=== PATIENT | female | born 1955 | race Caucasian/White ===

== ENCOUNTER 2019-08-10 15:38 | Outpatient (CLI) | payer BC, SELFPAY ==
[2019-08-12 21:58] LABS: NIL 0.45 IU/mL; Quantiferon TB Plus, 1T NEGATIVE (NEGATIVE); TB1-NIL <0.00 IU/mL; TB2-NIL <0.00 IU/mL
== END 2019-08-10 15:39 | disposition home or self-care (01) ==
LOC: ANHLAB 15:42
PROVIDERS: PCP Family Medicine
DX: L40.0 Psoriasis vulgaris (principal)
CPT/HCPCS: 36415; 86480

== ENCOUNTER 2020-07-06 08:56 | Outpatient (CLI) | payer BC, SELFPAY ==
[2020-07-06 09:23] LABS: Hematocrit 41.9 % (37.0-47.0); Hemoglobin 13.8 g/dL (12.0-15.0); Mean Corpuscular HGB Conc 32.9 g/dl (32-36); Mean Corpuscular Hemoglobin 26.1 pg (26-34); Mean Corpuscular Volume 79.2 fl (80-100); Mean Platelet Volume 9.9 fl (7.4-10.4); Platelet Count Result 190 k/mm3 (150-375); Red Blood Count 5.29 M/mm3 (4.2-5.4); Red Cell Distribution Width 15.3 % (11.5-14.5); White Blood Count 5.8 K/mm3 (4.5-10.0)
[2020-07-06 09:33] LABS: Alanine Aminotransferase 97 U/L (4-35); Albumin Level 4.1 g/dL (3.5-5.1); Alkaline Phosphatase 70 U/L (38-126); Anion Gap 6 mmol/L (8-16); Aspartate Amino Transferase 53 U/L (14-36); Bilirubin,Total 0.6 mg/dL (0.2-1.3); Blood Urea Nitrogen 9 mg/dL (7-17); Calcium 9.4 mg/dL (8.4-10.2); Carbon Dioxide 29 mmol/L (22-30); Chloride 101 mmol/L (98-107); Estimated Glomerular Filt Rate > 60; Glucose 228 mg/dL (65-105); Potassium 4.3 mmol/L (3.4-5.0); Sodium 136 mmol/L (137-145)
== END 2020-07-06 08:57 | disposition home or self-care (01) ==
PROVIDERS: PCP Family Medicine; Visit Provider Dermatology
DX: L40.0 Psoriasis vulgaris (principal)
CPT/HCPCS: 36415; 80053; 85027

== ENCOUNTER 2020-08-21 09:55 | Outpatient (CLI) | payer BC, SELFPAY ==
[2020-08-24 01:24] LABS: NIL 0.03 IU/mL; Quantiferon TB Plus, 1T NEGATIVE (NEGATIVE); TB1-NIL <0.00 IU/mL
== END 2020-08-21 09:56 | disposition home or self-care (01) ==
PROVIDERS: PCP Family Medicine; Visit Provider Dermatology
DX: L40.0 Psoriasis vulgaris (principal)
CPT/HCPCS: 36415; 86480

== ENCOUNTER 2021-01-30 09:12 | Outpatient (CLI) | payer BC, SELFPAY ==
[2021-01-30 09:57] LABS: Basophils Absolute Auto 0.1 K/mm3 (0.0-0.1); Basophils Percent Auto 0.8 % (0.2-1.2); Eosinophils Absolute Auto 0.3 K/mm3 (0-0.3); Hematocrit 44.4 % (37.0-47.0); Hemoglobin 14.4 g/dL (12.0-15.0); Immature Granulocyte Absolute 0.02 K/mm3 (0.00-0.031); Immature Granulocyte Percent A 0.3 % (0-0.5); Lymphocytes Absolute Auto 1.12 K/mm3 (0.9-3.2); Lymphocytes Percent Auto 18.1 % (18.3-44.2); Mean Corpuscular HGB Conc 32.4 g/dl (32-36); Mean Corpuscular Hemoglobin 25.6 pg (26-34); Mean Platelet Volume 9.6 fl (7.4-10.4); Monocytes Absolute Auto 0.5 K/mm3 (0.1-0.6); Monocytes Percent Auto 7.4 % (2.6-8.5); Neutrophils Absolute Auto 4.3 K/mm3 (1.3-6.7); Neutrophils Percent Auto 69.4 % (45.5-73.1); Platelet Count Result 240 k/mm3 (150-375); Red Blood Count 5.62 M/mm3 (4.2-5.4); Red Cell Distribution Width 15.2 % (11.5-14.5); White Blood Count 6.2 K/mm3 (4.5-10.0)
[2021-01-30 10:15] LABS: Alanine Aminotransferase 100 U/L (4-35); Albumin Level 4.5 g/dL (3.5-5.1); Alkaline Phosphatase 78 U/L (38-126); Anion Gap 11 mmol/L (8-16); Aspartate Amino Transferase 60 U/L (14-36); Bilirubin,Total 0.7 mg/dL (0.2-1.3); Blood Urea Nitrogen 8 mg/dL (7-17); Calcium 9.9 mg/dL (8.4-10.2); Carbon Dioxide 25 mmol/L (22-30); Chloride 95 mmol/L (98-107); Estimated Glomerular Filt Rate > 60; Glucose 231 mg/dL (65-110); Sodium 131 mmol/L (137-145)
[2021-01-30 10:58] LABS: Creatinine Urine 220.2 mg/dL
[2021-01-30 11:02] LABS: MALB Creatinine Ratio 65.4 mg/g (0-30)
[2021-02-04 13:05] LABS: ANA Cascade Screen Positive (Negative)
[2021-02-04 19:15] LABS: Chromatin (Nucleosomal) Ab >8.0; RNP Antibody 2.8; Sm Antibody >8.0; Sm/RNP Antibody >8.0
== END 2021-01-30 09:13 | disposition home or self-care (01) ==
LOC: ANHLAB 09:16
PROVIDERS: PCP Family Medicine; Visit Provider Physician Assistant Medical
DX: E03.9 Hypothyroidism, unspecified (principal); E78.2 Mixed hyperlipidemia; E11.65 Type 2 diabetes mellitus with hyperglycemia; I77.6 Arteritis, unspecified; Z13.220 Encounter for screening for lipoid disorders; D64.9 Anemia, unspecified
CPT/HCPCS: 36415; 80053; 82043; 84443; 85025; 86038

== ENCOUNTER 2021-02-14 09:00 | Outpatient (CLI) | payer BC, SELFPAY ==
[2021-02-14 10:13] LABS: Anion Gap 8 mmol/L (8-16); Blood Urea Nitrogen 8 mg/dL (7-17); Carbon Dioxide 24 mmol/L (22-30); Chloride 103 mmol/L (98-107); Estimated Glomerular Filt Rate > 60; Glucose 213 mg/dL (65-110); Potassium 4.2 mmol/L (3.4-5.0); Sodium 135 mmol/L (137-145)
== END 2021-02-14 09:01 | disposition home or self-care (01) ==
LOC: ANHLAB 09:02
PROVIDERS: PCP Family Medicine; Visit Provider Physician Assistant Medical
DX: E03.9 Hypothyroidism, unspecified (principal); E87.1 Hypo-osmolality and hyponatremia
CPT/HCPCS: 36415; 80048; 84443

== ENCOUNTER 2021-04-24 13:03 | Inpatient (IN) | payer BC, SELFPAY ==
[2021-04-24] VITALS (19 sets, daily range): BP systolic 121–143; BP diastolic 68–106; PULSE 82–124; RESP 18–36; TEMP 36.7–38; O2SAT 88–99; BMI 35.8
--- NOTE | ~2021-04-24 | XR_ITS ---
EXAMINATION: XR chest 1V portable DATE: 05/02/2021 05:50 INDICATION: COVID-19 pneumonia. TECHNIQUE: A single frontal view of the chest was obtained. COMPARISON: Chest single view 05/01/2021 FINDINGS: There are airspace opacities and interstitial opacities in all lung zones bilaterally with a peripheral predominance, right worse than left. No pleural effusion or pneumothorax. The heart size is normal. A right upper extremity peripherally inserted central venous catheter (PICC) is seen with tip in the proximal right atrium. IMPRESSION: 1. Stable diffuse lung disease, consistent with COVID-19 pneumonia. Reviewed, dictated and finalized at location A. ER CUTTER
--- NOTE | ~2021-04-24 | XR_ITS ---
EXAMINATION: XR chest 1V portable DATE: 05/03/2021 06:00 INDICATION: Diffuse bilateral lung infiltrates. TECHNIQUE: A single frontal view of the chest was obtained. COMPARISON: Chest single view 05/02/2021 FINDINGS: There are airspace and interstitial opacities in all lung zones bilaterally with relative s paring of left lung apex. No pleural effusion or pneumothorax. The heart size is normal. A right uppe r extremity peripherally inserted central venous catheter (PICC) is seen with tip in the proximal rig ht atrium. IMPRESSION: 1. Stable diffuse lung disease considering differences in technique, consistent with COVID-19 pneumon ia. Reviewed, dictated and finalized at location A. T LINE OPERATOR IMPRESSION: 1. Stable diffuse lung disease considering differences in technique, consistent with COVID-19 pneumonia.
--- NOTE | ~2021-04-24 | XR_ITS ---
EXAMINATION: XR chest 1V portable DATE: 04/27/2021 08:41 INDICATION: Pneumonia. Shortness of breath. TECHNIQUE: frontal view of the chest was obtained. COMPARISON: Chest radiograph and CT dated 04/24/2021 FINDINGS: No significant interval change in patchy groundglass and reticular opacities throughout the both lung s relatively sparing the left upper lung zone and right apex. No pleural effusion or pneumothorax. Th e cardiomediastinal silhouette is normal. IMPRESSION: 1. No significant change in diffuse bilateral lung disease consistent with COVID pneumonia. Reviewed, dictated and finalized at location A. IMPRESSION: 1. No significant change in diffuse bilateral lung disease consistent with COVI D pneumonia.
--- NOTE | ~2021-04-24 | XR_ITS ---
EXAMINATION: XR chest 1V portable INDICATION: Hypoxia and shortness of breath TECHNIQUE: Portable AP chest at 1410 hours COMPARISON: 08/11/2010 FINDINGS: There are patchy opacities of the mid and lower lung zones and right upper lung zone. No pl eural effusion or pneumothorax is identified. The cardiomediastinal silhouette is normal. IMPRESSION: 1. Patchy bilateral opacities, likely pneumonia. Reviewed, dictated and finalized at location B.
--- NOTE | ~2021-04-24 | XR_ITS ---
EXAMINATION: XR chest PICC line DATE: 04/28/2021 21:54 INDICATION: PICC line placement TECHNIQUE: frontal view of the chest was obtained. COMPARISON: Chest radiograph dated 04/27/21 FINDINGS: Right upper extremity peripherally inserted central venous catheter (PICC) tip at the mid superior v pedro cava. Persistent interstitial and groundglass opacities in the bilateral mid and lower lung zones . The lung bases and costophrenic angles are excluded from the [id number]. No pneumothorax. Heart size is normal. IMPRESSION: 1. Right PICC line tip in the midsuperior vena cava. 2. No significant change in interstitial and airspace opacities in the mid and lower lung zones consi stent with COVID pneumonia. 3. Limited study with lung bases excluded from the [id number] Reviewed, dictated and finalized at location A. ES 9 12 TUTOR IMPRESSION: 1. Right PICC line tip in the midsuperior vena cava. 2. No significant change in interstitial and airspace opacities in the mid and lower lung zones consistent with COVID pneumonia. 3. Limited study with lung bases excluded from the [id number]
--- NOTE | ~2021-04-24 | CT_ITS ---
EXAMINATION:CT diagnostic chest wo con DATE: 05/02/2021 08:56 INDICATION: Right middle lobe necrotizing pneumonia. COVID-19 pneumonia. TECHNIQUE: Computed tomography (CT) of the chest was performed without intravenous contrast. Automate d exposure control and iterative reconstruction technique were employed. The dose-length product (DLP ) was 256.41 mGy-cm. COMPARISON: Chest CT 04/24/2021, chest radiograph 05/02/2021 FINDINGS: There are widespread groundglass opacities involving all lobes. There are airspace opacitie s and septal thickening involving all lobes with a peripheral predominance with areas of architectura l distortion. There is mild bronchiectasis in the inferior lungs. No pleural effusion. The heart size is normal. There are coronary artery calcifications. A right upper extremity peripherally inserted c entral venous catheter (PICC) is seen with tip in the right atrium. The liver demonstrates hypertroph y of left lateral segment and surface nodularity, consistent with cirrhosis. There is mild thoracic s pondylosis. IMPRESSION: 1. Worsened diffuse lung disease, consistent with COVID-19 pneumonia. 2. Cirrhosis of the liver. Reviewed, dictated and finalized at location A. HER ADULT EDUCATION
--- NOTE | ~2021-04-24 | XR_ITS ---
EXAMINATION: XR chest 1V portable DATE: 05/01/2021 05:44 INDICATION: Pneumonia. TECHNIQUE: A single frontal view of the chest was obtained. COMPARISON: Chest single view 04/28/2021, chest CT 04/24/2021, CT abdomen and pelvis 01/08/2019 FINDINGS: The lung volumes are normal. There are interstitial opacities and heterogeneous hazy airspa ce opacities in all lung zones bilaterally. No pleural effusion or pneumothorax. The heart size is no rmal. A right upper extremity peripherally inserted central venous catheter (PICC) is seen with tip a t the superior cavoatrial junction. IMPRESSION: 1. Diffuse lung disease, mildly worsened on the right from 04/27/2021, consistent with COVID-19 pneumo carla. Reviewed, dictated and finalized at location A. HATCHERY MANAGER IMPRESSION: 1. Diffuse lung disease, mildly worsened on the right from 04/27/2021, consisten t with COVID-19 pneumonia.
--- NOTE | ~2021-04-24 | CT_ITS ---
EXAMINATION: CTA chest PE protocol EXAM DATE: 04/24/2021 15:52 INDICATION: Shortness of breath. TECHNIQUE: Spiral CTA of the chest (pulmonary arteries) was performed with 100 cc Omnipaque 350 intr avenous contrast injection. Images were acquired during the pulmonary arterial phase. Coronal maxi mum intensity projection 3D-reconstructions were created by the technologist on dedicated workstation . Axial, coronal and sagittal reformatted images were reviewed. The dose-length product (DLP) for t his examination was 538.85 mGy-cm. The exposure was tailored according to patient size (auto mA exp osure control), and iterative reconstruction (ASIR) was used as additional dose reduction technique. There is no prior study for comparison. FINDINGS: Pulmonary arteries are well opacified and without intraluminal filling defects. No thora cic aortic dissection. Moderate amount of bilateral patchy peripheral predominant groundglass opacities with some small sydnie ons of confluence. Appearance is typical of acute to subacute COVID 19 pneumonia. Less likely acute possibilities include influenza, pulmonary edema or hemorrhage. Some chronic processes that can have this appearance include cryptogenic organizing pneumonia, desquamative interstitial pneumonia, nonsp ecific interstitial pneumonia, drug toxicity, connective tissue disease. Please clinically correlate and test as appropriate. There are no pleural or pericardial effusions. Tracheobronchial tree is patent. Mild hilar lympha denopathy probably reactive. There is no pneumothorax. Heart normal in size. There is mild coron kianna arterial calcification, arterial sclerosis. Mildly nodular liver contour suspicious for cirrhosi s. Spleen also appears mildly enlarged, incompletely imaged. There is mild thoracic spondylosis with out osteoblastic or osteolytic lesions identified. IMPRESSION: 1. Patchy bilateral groundglass airspace disease could be COVID 19 pneumonia given community prevale nce. Less likely possibilities above. 2. No pulmonary emboli. Reviewed, dictated and finalized at location A. IMPRESSION: 1. Patchy bilateral groundglass airspace disease could be COVID 19 pneumonia g iven community prevalence. Less likely possibilities above. 2. No pulmonary emboli.
--- NOTE | 2021-04-24 13:40 | ECG_ITS ---
Measurements Intervals Boyd Rate: 117 P: 8 GA: 159 QRS: 37 QRSD: 73 T: 17 QT: 340 QTc: 476 Interpretive Statements SINUS TACHYCARDIA BORDERLINE T WAVE ABNORMALITY- INFERIOR LEADS BASELINE ARTIFACT- I, II, III, AVR, AVL, AVF, V1, V3-V6 ABNORMAL ECG Electronically Signed On 04-24-2021 14:23:27 CDT by Andrew Arguelles D.O.
--- NOTE | 2021-04-24 13:42 | ED.URI ---
HPI - URI/Sore Throat General Chief Complaint: Upper Respiratory Infection Stated Complaint: MULTI C/O COUGH/COLD SX Time Seen by Provider: 04/24/21 13:40 Source: patient and family Mode of arrival: ambulatory Limitations: no limitations History of Present Illness HPI Narrative: Patient is a 65-year-old female with a history of type 2 diabetes, psoriasis, hypertension, hypothyroidism, presenting for evaluation of shortness of breath. Patient states she has been unwell over the past 2 weeks. Patient states that she caught a cold while traveling with her in their RV up to [place]. Patient states that due to her immunocompromise state, she typically wears a mask when she is out in the community. She denies recent sick contacts. Patient reports that she began to have low-grade fever, rhinorrhea, congestion, dry cough that is worsened over the past 2 weeks. Patient states that she has had worsening shortness of breath for the past week, and today with increased weakness, lack of appetite, prompting her visit to our department. Patient denies any chest pain. She denies history of asthma or COPD. She is a former smoker with cessation over 30 years ago. She denies any leg swelling or calf pain. No history of blood clot or coagulopathy. She confirms long recent travel to [place]. Patient has received full Covid vaccination series including booster. At the time of triage, patient oxygen saturation 80% on room air, she is tachypneic, tachycardic. Patient is able to speak in full sentences, nonrebreather placed on patient at the time of rooming. Related Data Home Medications Medication Instructions Recorded Confirmed adalimumab 40 mg/0.4 mL See Rx Instructions SUBCUT .COMPLEX 01/30/21 03/20/21 subcutaneous syringe kit Allergies Allergy/AdvReac Type Severity Reaction Status Date / Time adhesive tape Allergy Severe RASH Verified 04/24/21 13:41 latex Allergy Intermediate RASH Verified 04/24/21 13:41 aloe Allergy Unknown Unknown Verified 04/24/21 13:41 morphine AdvReac Severe N/V Verified 04/24/21 13:41 prochlorperazine AdvReac Severe Confusion/J Verified 04/24/21 13:43 ittery empagliflozin AdvReac dizzy and Verified 04/24/21 13:41 [From Jardiance] nausea. Review of Systems Review of Systems: CONSTITUTIONAL: Reports fever and chills EYES: Denies visual changes, redness, or discharge. ENT: Reports rhinorrhea and congestion CARDIOVASCULAR: Denies chest pain, palpitations, or edema. RESPIRATORY: Reports cough and shortness of breath GASTROINTESTINAL: Denies abdominal pain, reports nausea, denies diarrhea GENITOURINARY: Denies dysuria or hematuria. SKIN: Denies rash or itching. MUSCULOSKELETAL: Denies back pain, joint pain, or myalgia. NEUROLOGIC: Denies headache, numbness, reports feeling diffusely weak PMFSH Past Medical History Medical History (Updated 04/24/21 @ 16:26 by Candelaria Penn MD) Anemia BMI 36.0-36.9,adult BMI 37.0-37.9, adult Hepatic cirrhosis Hyponatremia Hypothyroidism Low vitamin D level Lumbar back pain Mixed hyperlipidemia Positive KERI (antinuclear antibody) Psoriasis Type 2 diabetes mellitus without complications Uncontrolled type 2 diabetes mellitus with hyperglycemia Vasculitis Family History Family History Father Hypertension Cerebrovascular accident Mother Hypertension Family history of Alzheimer's disease Grandparent Family history of malignant neoplasm of uterus Diabetes mellitus Social History Social History Smoking status: Never smoker Smoking end date: 06/23/03 Alcohol intake: current Drinks per week: 1 Substance use: never Substance use type: does not use Additional living arrangements comments: roommate Additional occupation/education comments: [employer] Gender identity (if verbalized by the patient): Female Sexual Orientat
[2021-04-24] MEDS: SODIUM CHLORIDE 0.9% IV 1,000 ML 999 ML IV CONT (13:52)
[2021-04-24 14:03] LABS: Alveolar/Arterial O2 Gradient 613.2 mmHg; Carboxyhemoglobin 0.6 % THb (0-2.0); Fractional Inspired Oxygen 100 %; HCO3 ABG 18.9 mEq/l (22.0-26.0); Methemoglobin ABG 0.3 %THb (0-1.5); Oxygen Content ABG 18.1 %vol (16.0-22.0); Oxyhemoglobin 93.6 % THb (90.0-100.0); PCO2 ABG 25.9 mmHg (35.0-45.0); PO2 ABG 73.9 mmHg (80.0-100.0); PO2 FiO2 Ratio Arterial Blood 0.74 %; Reduced Hemoglobin 5.5 %THb (0-5.0); Total Hemoglobin 13.7 g/dL (12.0-18.0)
[2021-04-24 14:04] LABS: Device NON-REBREATHER MASK; Modified Allen's Test Pass; Site Drawn RIGHT RADIAL
[2021-04-24 14:51] LABS: INR 1.1; Prothrombin Time 13.9 Seconds (11.1-14.7)
[2021-04-24 14:52] LABS: Partial Thromboplastin Time 28.6 SECONDS (22.3-36.8)
[2021-04-24 15:06] LABS: Lactic Acid Reflex 1.6 mmol/L (0.7-2.1)
[2021-04-24 15:16] LABS: Alanine Aminotransferase 43 U/L (4-35); Albumin Level 3.3 g/dL (3.5-5.1); Alkaline Phosphatase 90 U/L (38-126); Anion Gap 11 mmol/L (8-16); Aspartate Amino Transferase 87 U/L (14-36); Bilirubin,Total 0.9 mg/dL (0.2-1.3); Blood Urea Nitrogen 5 mg/dL (7-17); Calcium 8.3 mg/dL (8.4-10.2); Carbon Dioxide 22 mmol/L (22-30); Chloride 94 mmol/L (98-107); Estimated CRCL calculation 139 ml/min; Estimated Glomerular Filt Rate > 60; Glucose 230 mg/dL (65-110); Sodium 127 mmol/L (137-145)
[2021-04-24 15:22] LABS: Basophils Percent Auto 0.3 % (0.2-1.2); Hematocrit 38.9 % (37.0-47.0); Hemoglobin 13.1 g/dL (12.0-15.0); Immature Granulocyte Absolute 0.02 K/mm3 (0.00-0.031); Immature Granulocyte Percent A 0.5 % (0-0.5); Lymphocytes Absolute Auto 0.38 K/mm3 (0.9-3.2); Lymphocytes Percent Auto 9.7 % (18.3-44.2); Mean Corpuscular HGB Conc 33.7 g/dl (32-36); Mean Corpuscular Hemoglobin 26.5 pg (26-34); Mean Corpuscular Volume 78.7 fl (80-100); Mean Platelet Volume 9.5 fl (7.4-10.4); Monocytes Absolute Auto 0.2 K/mm3 (0.1-0.6); Monocytes Percent Auto 5.9 % (2.6-8.5); Neutrophils Absolute Auto 3.3 K/mm3 (1.3-6.7); Neutrophils Percent Auto 83.6 % (45.5-73.1); Platelet Count Result 221 k/mm3 (150-375); Red Blood Count 4.94 M/mm3 (4.2-5.4); Red Cell Distribution Width 16.2 % (11.5-14.5); White Blood Count 3.9 K/mm3 (4.5-10.0)
[2021-04-24 15:28] LABS: NT Pro B Type Natriuretic Pept 69 pg/mL (5-100); Troponin I < 0.012 ng/mL (0.000-0.034)
[2021-04-24 17:58] LABS: Add Urine Microscopic? YES; Appearance Urine Clear (Clear); Bacteria Urine Trace /hpf; Bilirubin Urine Negative (Negative); Blood Urine 1+ (Negative); Color Urine Yellow (Yellow); Glucose Urine UA 2+ mg/dL (Negative); Ketones Urine Trace mg/dL (Negative); Leukocyte Esterase Ur 3+ LEU/UL (Negative); Mucus Urine Rare /lpf; Nitrate Urine Negative (Negative); Protein Urine Negative (Negative); Squamous Epithelial Cell Urine Moderate /hpf (Few); Urobilinogen Urine Negative mg/dL (<2.0); WBC Urine 16-20 /hpf
[2021-04-24 18:00] LABS: Specific Grav Ur 1.033 (1.001-1.035)
--- NOTE | 2021-04-24 20:13 | PM.IMHP ---
H&P: HPI History of Present Illness Date/Time: 04/24/21 20:13 Chief Complaint: Shortness of breath. Narrative: This is a 65-year-old female with past medical history significant for psoriasis, type 2 diabetes mellitus controlled with diet and ora agents, hypertension, hypothyroidism, dyslipidemia. Patient presented to the emergency room due to generalized malaise, body aches and pains, uncontrollable shivering, chills, subjective fevers, nausea, vomiting, poor appetite, has not been able to eating in today and has been eating very little in the last 2 weeks or so, has had diarrhea as well, patient has been vaccinated for COVID, she lives with a roommate he has a cold. Patient had tested positive for COVID. Patient had worsening shortness of breath with minimal exertion and a dry cough at times productive of clear phlegm, had not been able to get up from bed in several days. Preliminary workup has been significant for chest x-ray with patchy bilateral opacities, a CT angio of the chest was significant for patchy bilateral groundglass airspace disease could be COVID 19 pneumonia given community prevalence. In emergency room patient had a temp of 100.4 respiratory rate in the 30s pulse ox in the mid 90s at the time of my visit patient was on supplemental oxygen by nasal cannula and stated that was he was feeling better. Review of Systems Review of Systems: Dry cough, shortness of breath ,generalized malaise, nausea ,,vomiting diarrhea ,poor appetite, chills. Constitutional: Constitutional: Reports body ache(s), Reports chills, Reports fatigue, Reports fever(s), Reports lethargy, Reports malaise, Reports poor appetite and Reports weakness Eyes: Eyes: Denies change in vision ENT: Denies dysphagia, Denies vertigo, Denies dizziness, Reports nasal congestion, Denies nasal discharge, Denies nasal obstruction, Denies odynophagia, Denies sinus pressure and Denies sore throat Cardiovascular: Cardiovascular: Denies irregular heart rhythm, Denies claudication, Denies lightheadedness, Denies radiating jaw, neck or arm pain, Denies palpitations, Denies dyspnea, Denies dyspnea on exertion, Denies orthopnea and Denies paroxysmal nocturnal dyspnea Respiratory: Respiratory: Reports cough, Denies excessive phlegm production, Reports dyspnea, Reports dyspnea on exertion and Denies wheezing Comments: Scanty sputum production of clear phlegm Gastrointestinal: Gastrointestinal: Denies abdominal pain, Reports diarrhea, Reports nausea and Reports vomiting Genitourinary: Genitourinary: Reports no additional female genitourinary complaints and Reports as per HPI Musculoskeletal: Musculoskeletal: Reports myalgias, Denies arthralgias and Denies joint swelling Integumentary/Breasts: Skin/Breast: Reports rash (Psoriatic rash) Neurologic: Denies focal weakness and Denies Sensory deficit (Neuro) Psychiatric: Psychiatric: Reports no additional psychiatric complaints and Reports as per HPI Endocrine: Endocrine: Reports no additional endocrine complaints and Reports as per HPI Hematologic/Lymphatic: Hematologic/Lymphatic: Reports no additional hematologic/lymphatic complaints and Reports as per HPI Allergic/Immunologic: Allergic/Immunologic: Reports no additional allergic/immunologic complaints and Reports as per HPI PMFSH Past Medical History Medical History (Updated 04/25/21 @ 00:17 by Laura Morillo MD) Anemia BMI 36.0-36.9,adult BMI 37.0-37.9, adult Hepatic cirrhosis Hyponatremia Hypothyroidism Low vitamin D level Lumbar back pain Mixed hyperlipidemia Positive KERI (antinuclear antibody) Psoriasis Type 2 diabetes mellitus without complications Uncontrolled type 2 diabetes mellitus with hyperglycemia Vasculitis Family History Family History Father Hypertension Cerebrovascular accident Mother Hypertension Family history of Alzheimer's disease Grandparent Family history of malignant neoplasm of
[2021-04-24 20:58] LABS: Glucose Point of Care 360 mg/dl (65-105)
[2021-04-24] MEDS: ALBUTEROL SULFATE (*SP) INHALER 2 PUFF INHALATION (21:11)
[2021-04-24 22:00] LABS: INR 1.1; Prothrombin Time 13.9 Seconds (11.1-14.7)
[2021-04-24 22:01] LABS: Alanine Aminotransferase 42 U/L (4-35); Estimated CRCL calculation 135 ml/min; Estimated Glomerular Filt Rate > 60
[2021-04-24] MEDS: REMDESIVIR 200 MG/NS 250 ML 200 MG/250 ML BAG 250 MG IVPB (22:01)
--- NOTE | 2021-04-24 22:19 | ADMGEN ---
This patient, Albina Crockett, was admitted to IMU Room 211-01. Patient/family oriented to hospital policies and general routines including ID bracelet, bed and alarms, visiting hours, pain management, procedures, bathroom and other care routines, personal items, smoking policy, room service/diet, and visiting hours. Information on how to activate the Rapid Response Team has been discussed. Patient/Family are encouraged to report perceived risks to care and to ask questions if they do not understand what they are told or what they should do.
[2021-04-25] VITALS (22 sets, daily range): BP systolic 104–120; BP diastolic 52–62; PULSE 74–97; RESP 20–24; TEMP 35.8–36.8; O2SAT 92–100
[2021-04-25] MEDS: ALBUTEROL SULFATE (*SP) INHALER 2 PUFF INHALATION ×6 (01:20→20:47)
[2021-04-25 04:46] LABS: Alanine Aminotransferase 39 U/L (4-35); Estimated CRCL calculation 135 ml/min; Estimated Glomerular Filt Rate > 60
[2021-04-25 04:52] LABS: INR 1.1; Prothrombin Time 13.8 Seconds (11.1-14.7)
[2021-04-25] MEDS: LEVOTHYROXINE SODIUM 75 MCG TABLET PO (05:10)
[2021-04-25] MEDS: ROSUVASTATIN 10 MG TABLET 20 MG PO (08:19)
[2021-04-25] MEDS: lisinopriL 5 MG TABLET PO (08:20)
[2021-04-25] MEDS: ENOXAPARIN 40 MG/0.4 ML SYRINGE SUB-Q ×2 (08:20→20:19)
[2021-04-25] MEDS: INSULIN ASPART (*BKC) 100 UNITS/ML SUB-Q ×3 (08:21→17:48)
[2021-04-25 08:29] LABS: Glucose Point of Care 228 mg/dl (65-105)
--- NOTE | 2021-04-25 08:53 | PM.IMPN ---
Progress Note: A&P Assessment and Plan (1) Acute respiratory failure with hypoxia: Code(s): J96.01 - Acute respiratory failure with hypoxia Status: Acute Assessment and Plan: Patient is on 15 L of oxygen by nasal cannula (2) Pseudohyponatremia: Code(s): R79.89 - Other specified abnormal findings of blood chemistry Status: Acute Assessment and Plan: Likely a combination of poor oral intake and some hyperglycemia Continue to monitor Will try for p.o. intake due to her tenuous respiratory status (3) Type 2 diabetes mellitus without complications: Qualifiers: Diabetes mellitus [facility] insulin use: without [facility] use Qualified Code(s): E11.9 - Type 2 diabetes mellitus without complications Code(s): E11.9 - Type 2 diabetes mellitus without complications Status: Acute Assessment and Plan: Holding metformin Holding glimepiride Insulin sliding scale as needed Accu-Cheks AC and HS (4) Psoriasis: Code(s): L40.9 - Psoriasis, unspecified Status: Acute (5) Lumbar back pain: Code(s): M54.5 - Low back pain Status: Acute Assessment and Plan: Tylenol p.r.n. (6) Hypothyroidism: Qualifiers: Hypothyroidism type: unspecified Qualified Code(s): E03.9 - Hypothyroidism, unspecified Code(s): E03.9 - Hypothyroidism, unspecified Status: Acute Assessment and Plan: Continue Synthroid Follow-up in the outpatient setting (7) Pneumonia: Code(s): J18.9 - Pneumonia, unspecified organism Status: Acute Assessment and Plan: 04/25/21 Acute hypoxemic respiratory failure on 15 L Workup started for atypical pneumonia Repeat COVID PCR Consult pulmonology Patient on Humira unclear if she has pneumonia associated with immunocompromise state Continue current care A.m. labs Subjective Date/time seen: 04/25/21 08:53 pt reports that she has received the vaccine for COVID-19 and are ready has had a negative test the outpatient setting in that she strongly believes she does not have COVID-19 at this time. She is advised the risk still pending the results of the PCR test done here in house. Call from our inpatient PCR is negative will order atypical workup and consult Pulmonary patient is immunocompromised taking Humira Exam Narrative: GEN: NAD, AAOx3, cooperative HEENT: NCAT, MMM, EOMI Neck: no JVD Heart: S1S2 RRR Lungs: Crackle no use of accessory muscles on 15 L nasal cannula with non-rebreather mask saturating 97% Abd: soft, NT, ND, bowel sounds normoactive Ext: moves all, no cyanosis, no clubbing, no edema Neuro: Cranial nerves intact no focal neurological deficits appreciated Psych: Mood and affect congruent Objective Data Vital Signs Vital Signs: Vital Signs - 24 hr 04/24/21 13:30 04/24/21 13:34 04/24/21 13:35 Temperature 100.4 F H Pulse Rate 124 H 121 H Respiratory Rate 28 H 26 H Blood Pressure 141/106 H 141/106 H Pulse Oximetry 93 94 96 04/24/21 13:38 04/24/21 13:45 04/24/21 14:00 Temperature Pulse Rate 120 H 118 H 120 H Respiratory Rate 30 H 30 H 29 H Blood Pressure 143/75 H 126/96 H 131/89 Pulse Oximetry 99 97 99 04/24/21 14:34 04/24/21 14:45 04/24/21 15:15 Temperature Pulse Rate 89 107 H 106 H Respiratory Rate 18 20 20 Blood Pressure 132/78 130/82 Pulse Oximetry 98 97 97 04/24/21 16:45 04/24/21 17:30 04/24/21 18:30 Temperature Pulse Rate 95 107 H 95 Respiratory Rate 28 H 27 H 28 H Blood Pressure 121/78 136/82 132/70 Pulse Oximetry 94 97 97 04/24/21 19:00 04/24/21 20:00 04/24/21 20:30 Temperature Pulse Rate 93 93 82 Respiratory Rate 36 H 31 H 30 H Blood Pressure 136/75 132/76 136/72 Pulse Oximetry 97 94 94 04/24/21 21:00 04/24/21 21:14 04/24/21 22:00 Temperature Pulse Rate 96 88 96 Respiratory Rate 22 H 18 Blood Pressure Pulse Oximetry 92 95 04/24/21 23:57 04/25/21 00:00 04/25/21 01:49 Temp
[2021-04-25 09:12] LABS: D Dimer 3.78 ug/mL (<0.48)
[2021-04-25] MEDS: PANTOPRAZOLE SODIUM IV 40 MG VIAL IV PUSH ×2 (11:08→20:19)
[2021-04-25] MEDS: DEXAMETHASONE 2 MG TABLET 6 MG PO ×2 (11:08→17:48)
[2021-04-25 11:22] LABS: CRP 4.7 mg/dL (<1.0); Lactate Dehydrogenase 1487 U/L (313-618)
[2021-04-25 12:01] LABS: Glucose Point of Care 263 mg/dl (65-105)
[2021-04-25 17:30] LABS: SARS-CoV-2 RNA PCR Negative
[2021-04-25 17:35] LABS: Glucose Point of Care 290 mg/dl (65-105)
--- NOTE | 2021-04-25 17:40 | PHAR ---
Humira Pen 40mg/0.4ml home medication seen and kept in IMU nursing unit. Every 2 weeks, dose due 04/25/21
--- NOTE | 2021-04-25 17:41 | PHAR ---
Humira Pen 40mg/0.4ml Pen home medication kept on IMU nursing unit. Dose [id number] is due 04/25/21
[2021-04-25 20:09] LABS: Glucose Point of Care 346 mg/dl (65-105)
[2021-04-25] MEDS: ACETAMINOPHEN 325 MG TABLET 650 MG PO (23:15)
[2021-04-26] VITALS (16 sets, daily range): BP systolic 100–137; BP diastolic 55–78; PULSE 65–108; RESP 18–24; TEMP 35.8–36.8; O2SAT 90–100
[2021-04-26] MEDS: ALBUTEROL SULFATE (*SP) INHALER 2 PUFF INHALATION ×6 (00:10→20:07)
[2021-04-26 04:55] LABS: Hematocrit 37.9 % (37.0-47.0); Hemoglobin 12.4 g/dL (12.0-15.0); Immature Granulocyte Absolute 0.02 K/mm3 (0.00-0.031); Immature Granulocyte Percent A 0.4 % (0-0.5); Lymphocytes Absolute Auto 0.56 K/mm3 (0.9-3.2); Lymphocytes Percent Auto 10.9 % (18.3-44.2); Mean Corpuscular HGB Conc 32.7 g/dl (32-36); Mean Corpuscular Hemoglobin 26.2 pg (26-34); Mean Corpuscular Volume 80.1 fl (80-100); Mean Platelet Volume 9.1 fl (7.4-10.4); Monocytes Absolute Auto 0.3 K/mm3 (0.1-0.6); Monocytes Percent Auto 5.4 % (2.6-8.5); Neutrophils Absolute Auto 4.3 K/mm3 (1.3-6.7); Neutrophils Percent Auto 83.3 % (45.5-73.1); Platelet Count Result 201 k/mm3 (150-375); Red Blood Count 4.73 M/mm3 (4.2-5.4); Red Cell Distribution Width 16.5 % (11.5-14.5); White Blood Count 5.1 K/mm3 (4.5-10.0)
[2021-04-26 05:12] LABS: INR 1.2; Prothrombin Time 14.9 Seconds (11.1-14.7)
[2021-04-26 05:24] LABS: Alanine Aminotransferase 36 U/L (4-35); Albumin Level 3.3 g/dL (3.5-5.1); Alkaline Phosphatase 87 U/L (38-126); Anion Gap 9 mmol/L (8-16); Aspartate Amino Transferase 69 U/L (14-36); Bilirubin,Total 0.6 mg/dL (0.2-1.3); Blood Urea Nitrogen 10 mg/dL (7-17); Calcium 8.6 mg/dL (8.4-10.2); Carbon Dioxide 24 mmol/L (22-30); Chloride 100 mmol/L (98-107); Estimated CRCL calculation 111 ml/min; Estimated Glomerular Filt Rate > 60; Glucose 300 mg/dL (65-110); Magnesium 2.1 mg/dL (1.6-2.3); Potassium 3.8 mmol/L (3.4-5.0); Sodium 133 mmol/L (137-145)
[2021-04-26] MEDS: LEVOTHYROXINE SODIUM 75 MCG TABLET PO (05:41)
[2021-04-26 08:08] LABS: Glucose Point of Care 279 mg/dl (65-105)
[2021-04-26] MEDS: INSULIN ASPART (*BKC) 100 UNITS/ML SUB-Q ×3 (08:09→17:26)
[2021-04-26] MEDS: PANTOPRAZOLE SODIUM IV 40 MG VIAL IV PUSH ×2 (08:09→20:30)
[2021-04-26] MEDS: ROSUVASTATIN 10 MG TABLET 20 MG PO (08:10)
[2021-04-26] MEDS: lisinopriL 5 MG TABLET PO (08:10)
[2021-04-26] MEDS: ENOXAPARIN 40 MG/0.4 ML SYRINGE SUB-Q ×2 (08:10→20:30)
--- NOTE | 2021-04-26 11:12 | PM.IMPN ---
Progress Note: A&P Assessment and Plan (1) Acute respiratory failure with hypoxia: Code(s): J96.01 - Acute respiratory failure with hypoxia Status: Acute Assessment and Plan: Patient is on 15 L of oxygen by nasal cannula (2) Pseudohyponatremia: Code(s): R79.89 - Other specified abnormal findings of blood chemistry Status: Acute Assessment and Plan: Likely a combination of poor oral intake and some hyperglycemia Continue to monitor Will try for p.o. intake due to her tenuous respiratory status (3) Type 2 diabetes mellitus without complications: Qualifiers: Diabetes mellitus senior living insulin use: without senior living use Qualified Code(s): E11.9 - Type 2 diabetes mellitus without complications Code(s): E11.9 - Type 2 diabetes mellitus without complications Status: Acute Assessment and Plan: Holding metformin Holding glimepiride Insulin sliding scale as needed Accu-Cheks AC and HS (4) Psoriasis: Code(s): L40.9 - Psoriasis, unspecified Status: Acute (5) Lumbar back pain: Code(s): M54.5 - Low back pain Status: Acute Assessment and Plan: Tylenol p.r.n. (6) Hypothyroidism: Qualifiers: Hypothyroidism type: unspecified Qualified Code(s): E03.9 - Hypothyroidism, unspecified Code(s): E03.9 - Hypothyroidism, unspecified Status: Acute Assessment and Plan: Continue Synthroid Follow-up in the outpatient setting (7) Pneumonia: Code(s): J18.9 - Pneumonia, unspecified organism Status: Acute Assessment and Plan: 04/25/21 Acute hypoxemic respiratory failure on 15 L Workup started for atypical pneumonia Repeat COVID PCR Consult pulmonology Patient on Humira unclear if she has pneumonia associated with immunocompromise state Continue current care A.m. labs 04/26/21 seen by pulm atypical PNA workup pending including repeat COVID testing pulm recs appreciated no overnight events cont current care O2 on high flow but stable BG elevated (received steroids) start Lantus 10U in addition to ISS med dose Subjective Date/time seen: 04/26/21 11:12 Pt states that she feels better just waiting for pulm consult. no overnight events , O2 stable for last 24 hours Exam Narrative: GEN: NAD, AAOx3, cooperative HEENT: NCAT, MMM, EOMI Neck: no JVD Heart: S1S2 RRR Ext: moves all, no cyanosis, no clubbing, no edema, wide spead psoriatic rash Neuro: Cranial nerves intact no focal neurological deficits appreciated Psych: Mood and affect congruent Objective Data Vital Signs Vital Signs: Vital Signs - 24 hr 04/25/21 12:00 04/25/21 12:22 04/25/21 14:00 Temperature 98.3 F Pulse Rate 88 90 97 Respiratory Rate 20 Blood Pressure 104/52 L Pulse Oximetry 95 95 04/25/21 16:00 04/25/21 17:44 04/25/21 18:00 Temperature 97.8 F Pulse Rate 88 96 92 Respiratory Rate 24 H Blood Pressure 120/62 Pulse Oximetry 92 96 04/25/21 19:32 04/25/21 20:00 04/25/21 20:47 Temperature 98.1 F Pulse Rate 91 89 84 Respiratory Rate 24 H 20 20 Blood Pressure 109/55 L Pulse Oximetry 96 97 97 04/25/21 21:55 04/25/21 23:26 04/26/21 00:00 Temperature 98 F Pulse Rate 88 86 96 Respiratory Rate 20 20 Blood Pressure 106/56 L Pulse Oximetry 100 100 04/26/21 02:00 04/26/21 03:43 04/26/21 04:00 Temperature 97.9 F Pulse Rate 68 65 75 Respiratory Rate 24 H 24 H Blood Pressure 100/55 L Pulse Oximetry 96 96 04/26/21 06:00 04/26/21 08:00 04/26/21 09:24 Temperature 96.5 F L Pulse Rate 78 91 Respiratory Rate 18 Blood Pressure 137/78 Pulse Oximetry 98 97 Intake/Output Intake/Output: Intake & Output 04/23/21 04/24/21 04/25/21 04/26/21 23:59 23:59 23:59 23:59 Intake Total 1650 1640 350 Output Total 3000 1800 Balance [id number] -[id number] -[id number] Meds/Results Medications: Active Medications Generic Name Dose Route Start Last Admin
[2021-04-26 11:44] LABS: Glucose Point of Care 317 mg/dl (65-105)
--- NOTE | 2021-04-26 16:42 | PM.CNPUL ---
Assessment and Plan Assessment and plan (1) Pneumonia: Code(s): J18.9 - Pneumonia, unspecified organism Status: Acute Assessment and Plan: 65-year-old female with 1 month history of progressively increasing shortness of breath, low-grade temperature, hypoxemic respiratory failure related to extensive bilateral ground-glass opacities with subpleural and basilar distribution, chronically immunocompromised on adalimumab for psoriatic arthritis, with positive KERI and other antibodies tested 3 months ago, with negative COVID PCR testing is currently on high-flow nasal cannula with oxygen saturation in the high 90s and on antibiotics for possible community-acquired pneumonia. Influenza swab testing reportedly negative. Repeat testing for COVID pending. Etiology of the patient's illness is not quite clear. The pulmonary infiltrates are compatible with possible COVID pneumonia especially with the history of chronic immunosuppression although she has been vaccinated and also received booster shot in 02/10. What is not typical for Covid pneumonia is that the illness is rather subacute it started one month ago and respiratory failure occurred late from onset of symptoms. Differential diagnosis includes other infectious diseases causing atypical pneumonia. Also the patient has significant auto immune disease background and there is a possibility that the bilateral infiltrates are due to interstitial lung disease such as NSIP. Interstitial lung disease is quite rare in patients with psoriatic arthritis but may occur in patients on anti TNF alpha therapy. plan: await repeat CoVID PCR testing. If negative, we will consider bronchoscopy with BAL to exclude other infections. Continue with current antibiotics for now, HF nasal canula, DVT prophylaxis. Keep patient NPO. (2) Acute respiratory failure with hypoxia: Code(s): J96.01 - Acute respiratory failure with hypoxia Status: Acute (3) Psoriasis: Code(s): L40.9 - Psoriasis, unspecified Status: Acute (4) Positive KERI (antinuclear antibody): Code(s): R76.8 - Other specified abnormal immunological findings in serum Status: Acute History of Present Illness History of Present Illness Consult date: 04/26/21 Chief complaint: Pneumonia, Hypoxic Respiratory Failure Narrative: this 65-year-old female was admitted 2 days ago with a month history of febrile illness, dyspnea and fatigue. The patient has multiple medical problems including psoriatic arthritis chronically on anti TNF alpha agents, history of diabetes mellitus, hidradenitis supurativa, hypothyroidism. She was in her usual state of health until approximately one month ago when while on a trip in [place] she started having a low-grade temperature muscle aches occasional chills shortness of breath. when she returned from the trip she had a temperature 100.7?. For approximately 1 months, and while working from home she continued to have fatigue shortness of breath mild cough occasional night sweats muscle aches and fatigue. Four days prior to coming to the hospital she had a COVID test at [facility] which was reportedly negative. Over the ensuing days, the shortness of breath worsened and patient presented to the emergency room. In the emergency room she was found to have respiratory distress with hypoxemia and temperature 38? C. she was placed on non-rebreather mask with improvement of Oxyhemoglobin saturation. Workup with chest imaging studies showed bilateral patchy infiltrates primarily subpleurally and also at bases similar to those seen in patients with COVID-19 pneumonia. Of note the patient was vaccinated with 2 doses of Covid vaccine and received a booster dose in January. COVID-19 PCR testing was negative. Currently she is on high-flow nasal cannula, receiving antibiotics for possible community-acquired pneumonia. The patient is a poor historian she initially stated that she has been sick for 2 week
[2021-04-26 17:02] LABS: Glucose Point of Care 275 mg/dl (65-105)
[2021-04-26 20:28] LABS: D Dimer 0.27 ug/mL (<0.48)
[2021-04-26 20:31] LABS: Glucose Point of Care 334 mg/dl (65-105)
[2021-04-26 20:33] LABS: Erythrocyte Sedimentation Rate 25 mm/hr (0-20)
[2021-04-26] MEDS: INSULIN GLARGINE (*BKC) 100 UNITS/ML 10 UNITS SUB-Q (21:08)
[2021-04-26 22:24] LABS: SARS-CoV-2 RNA PCR Negative
[2021-04-26 22:32] LABS: Influenza Control Positive
[2021-04-27] VITALS (20 sets, daily range): BP systolic 109–139; BP diastolic 64–88; PULSE 90–114; RESP 20–24; TEMP 36.1–36.5; O2SAT 89–100
[2021-04-27] MEDS: ALBUTEROL SULFATE (*SP) INHALER 2 PUFF INHALATION ×3 (04:45→20:36)
[2021-04-27 07:40] LABS: INR 1.1; Prothrombin Time 13.6 Seconds (11.1-14.7)
[2021-04-27 07:41] LABS: Alanine Aminotransferase 35 U/L (4-35); Albumin Level 3.5 g/dL (3.5-5.1); Alkaline Phosphatase 94 U/L (38-126); Anion Gap 10 mmol/L (8-16); Aspartate Amino Transferase 52 U/L (14-36); Bilirubin,Total 0.8 mg/dL (0.2-1.3); Blood Urea Nitrogen 14 mg/dL (7-17); Carbon Dioxide 23 mmol/L (22-30); Chloride 100 mmol/L (98-107); Estimated CRCL calculation 135 ml/min; Estimated Glomerular Filt Rate > 60; Glucose 292 mg/dL (65-110); Potassium 3.9 mmol/L (3.4-5.0); Sodium 133 mmol/L (137-145)
[2021-04-27] MEDS: INSULIN ASPART (*BKC) 100 UNITS/ML SUB-Q ×3 (08:20→17:59)
[2021-04-27] MEDS: PANTOPRAZOLE SODIUM IV 40 MG VIAL IV PUSH ×2 (08:20→22:13)
--- NOTE | 2021-04-27 11:24 | PM.PNPUL ---
Progress Note: A&P Assessment and Plan (1) Pneumonia: Qualifiers: Pneumonia type: due to unspecified organism Laterality: bilateral Lung location: lower lobe of lung Qualified Code(s): J18.9 - Pneumonia, unspecified organism Code(s): J18.9 - Pneumonia, unspecified organism Status: Acute Assessment and Plan: 65-year-old immunocompromised female chronically on alpha anti TNF agent for psoriasis, vaccinated with 2 doses and additional booster for COVID, presented with febrile illness and shortness of breath that started approximately 1 month ago. The disease tempo has been fully clarified with the patient who stated that she became sick about 1 month prior to this admission. 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 On admission, she was found to have bilateral pulmonary infiltrates hypoxemia, low-grade temperature, mildly elevated D-dimers and CRP, and a borderline WBC with lymphopenia. Patient had 1- COVID test negative prior to coming to the hospital, 2nd negative COVID test on the day of admission and a 3rd COVID negative test yesterday. Other tests for infectious agents are pending as of now. The clinical condition has been stable over the last 24 hours, with the patient having O2 saturation of 97-98% on non-rebreather mask. Her shortness of breath has not worsened since admission. The chest CT showed ground-glass opacities primarily subpleurally and at bases bilaterally, which to a great extent resemble those of COVID pneumonia. on CT scan there is no evidence of consolidation, pleural effusion, or nodular densities that would suggest alternative diagnoses. The differential diagnosis, in addition to COVID pneumonia, includes other atypical pneumonia related to viruses, or to other organisms and also NSIP given the patient's autoimmune disease background and treatment with anti-TNF agents. Given the characteristic CT findings resembling COVID 19 pneumonia and despite recent booster vaccine at about 6 months after the two-dose vaccination and the negative PCR testing this may still be COVID pneumonia as the patient is severely immunocompromised, and the infection started about 1 month ago, which is enough time for the PCR testing to become negative. On today's chest x-ray, there was no significant worsening of bilateral pulmonary infiltrates. Since admission the CRP is now in the normal range as are the D-dimers. Plan is as follows: Will continue with the current treatment which includes antibiotics for community-acquired pneumonia, continue with DVT prophylaxis and current supplemental oxygen. Repeat chest x-ray in a.m. to monitor for possible infiltrate worsening. If there is evidence of clinical deterioration or worsening of infiltrates will proceed with bronchoscopy with BAL. Bronchoscopy was not done today as the patient has been stable over the last 24 hours, adequately oxygenated on high-flow nasal cannula or on non-rebreather mask, and also to avoid possible worsening respiratory status necessitating intubation related to the procedure. (2) Acute respiratory failure with hypoxia: Code(s): J96.01 - Acute respiratory failure with hypoxia Status: Acute (3) Psoriasis: Code(s): L40.9 - Psoriasis, unspecified Status: Acute (4) Hypothyroidism: Qualifiers: Hypothyroidism type: unspecified Qualified Code(s): E03.9 - Hypothyroidism, unspecified Code(s): E03.9 - Hypothyroidism, unspecified Status: Acute (5) Positive KERI (antinuclear antibody): Code(s): R76.8 - Other specified abnormal immunological findings in serum Status: Acute Subjective Date/time seen: 04/27/21 11:24 This is been no significant change in clinical condition over last 24 hours. Patient has been afebrile, with mild shortness of breath while receiving supplemental oxygen at 15 L per minute via high-flow nasal cannula. She has a very
[2021-04-27 12:29] LABS: Glucose Point of Care 256 mg/dl (65-105)
[2021-04-27 13:17] LABS: Alveolar/Arterial O2 Gradient 455.9 mmHg; Base Excess ABG -0.6 mEq/l (+/-2.0); Fractional Inspired Oxygen 80 %; HCO3 ABG 22.2 mEq/l (22.0-26.0); Oxygen Content ABG 18.6 %vol (16.0-22.0); Oxygen Saturation ABG 96.7 % (95.0-100.0); Oxyhemoglobin 94.9 % THb (90.0-100.0); PCO2 ABG 31.4 mmHg (35.0-45.0); PO2 ABG 81.5 mmHg (80.0-100.0); PO2 FiO2 Ratio Arterial Blood 1.02 %; Total Hemoglobin 13.9 g/dL (12.0-18.0); pH ABG 7.468 (7.350-7.450)
[2021-04-27 13:18] LABS: Device HIGH FLOW THERAPY; Modified Allen's Test Pass; Site Drawn RIGHT RADIAL
--- NOTE | 2021-04-27 13:26 | PC.NURSE ---
On 04/27/21, the student, [Jordy Monique], provided care and [facility] this patient. I have reviewed the student's documentation and agree with the findings.
--- NOTE | 2021-04-27 14:51 | PM.IMPN ---
Progress Note: A&P Assessment and Plan (1) Acute respiratory failure with hypoxia: Code(s): J96.01 - Acute respiratory failure with hypoxia Status: Acute Assessment and Plan: Patient is on 15 L of oxygen by nasal cannula (2) Pseudohyponatremia: Code(s): R79.89 - Other specified abnormal findings of blood chemistry Status: Acute Assessment and Plan: Likely a combination of poor oral intake and some hyperglycemia Continue to monitor Will try for p.o. intake due to her tenuous respiratory status (3) Type 2 diabetes mellitus without complications: Qualifiers: Diabetes mellitus shelter insulin use: without shelter use Qualified Code(s): E11.9 - Type 2 diabetes mellitus without complications Code(s): E11.9 - Type 2 diabetes mellitus without complications Status: Acute Assessment and Plan: Holding metformin Holding glimepiride Insulin sliding scale as needed Accu-Cheks AC and HS (4) Psoriasis: Code(s): L40.9 - Psoriasis, unspecified Status: Acute (5) Lumbar back pain: Code(s): M54.5 - Low back pain Status: Acute Assessment and Plan: Tylenol p.r.n. (6) Hypothyroidism: Qualifiers: Hypothyroidism type: unspecified Qualified Code(s): E03.9 - Hypothyroidism, unspecified Code(s): E03.9 - Hypothyroidism, unspecified Status: Acute Assessment and Plan: Continue Synthroid Follow-up in the outpatient setting (7) Pneumonia: Qualifiers: Pneumonia type: due to unspecified organism Laterality: bilateral Lung location: lower lobe of lung Qualified Code(s): J18.9 - Pneumonia, unspecified organism Code(s): J18.9 - Pneumonia, unspecified organism Status: Acute Assessment and Plan: 04/25/21 Acute hypoxemic respiratory failure on 15 L Workup started for atypical pneumonia Repeat COVID PCR Consult pulmonology Patient on Humira unclear if she has pneumonia associated with immunocompromise state Continue current care A.m. labs 04/26/21 seen by pulm atypical PNA workup pending including repeat COVID testing pulm recs appreciated no overnight events cont current care O2 on high flow but stable BG elevated (received steroids) start Lantus 10U in addition to ISS med dose 04/27/21 lantus adjusted now on HFNC now at 60L 80% workup on going pulm following cont current care Subjective Date/time seen: 04/27/21 14:51 doing ok on HFNC 60L 80% seen by pulm will defer bronch at this time pt in agreement, cont current care Exam Narrative: GEN: NAD, AAOx3, cooperative HEENT: NCAT, MMM, EOMI Neck: no JVD Heart: S1S2 RRR Ext: moves all, no cyanosis, no clubbing, no edema, wide spead psoriatic rash Neuro: Cranial nerves intact no focal neurological deficits appreciated Psych: Mood and affect congruent Objective Data Vital Signs Vital Signs: Vital Signs - 24 hr 04/26/21 16:00 04/26/21 18:00 04/26/21 19:55 Temperature 98.3 F Pulse Rate 99 108 H Respiratory Rate 20 Blood Pressure 124/64 Pulse Oximetry 98 92 04/26/21 20:00 04/26/21 22:00 04/27/21 00:00 Temperature 97.3 F L 97.7 F Pulse Rate 101 H 94 109 H Respiratory Rate 22 H 22 H Blood Pressure 110/60 128/78 Pulse Oximetry 97 99 04/27/21 02:00 04/27/21 04:00 04/27/21 06:00 Temperature 96.9 F L Pulse Rate 97 99 101 H Respiratory Rate 20 Blood Pressure 119/74 Pulse Oximetry 99 04/27/21 07:59 04/27/21 08:00 04/27/21 08:42 Temperature 97.7 F Pulse Rate 97 Respiratory Rate 20 Blood Pressure 109/71 Pulse Oximetry 98 98 94 04/27/21 10:00 04/27/21 11:24 04/27/21 12:00 Temperature 97.5 F L Pulse Rate 95 96 Respiratory Rate 22 H Blood Pressure 139/88 Pulse Oximetry 100 95 04/27/21 12:16 04/27/21 14:00 Temperature Pulse Rate 96 Respiratory Rate Blood Pressure Pulse Oximetry 96 Intake/Output Intake/Output: Inta
[2021-04-27 15:08] LABS: Glucose Point of Care 226 mg/dl (65-105)
[2021-04-27 17:35] LABS: Glucose Point of Care 218 mg/dl (65-105)
[2021-04-27] MEDS: INSULIN GLARGINE (*BKC) 100 UNITS/ML 10 UNITS SUB-Q ×2 (17:59→21:59)
[2021-04-27 20:20] LABS: Glucose Point of Care 199 mg/dl (65-105)
[2021-04-27] MEDS: ENOXAPARIN 40 MG/0.4 ML SYRINGE SUB-Q (21:18)
[2021-04-28] VITALS (23 sets, daily range): BP systolic 119–144; BP diastolic 64–101; PULSE 96–133; RESP 18–26; TEMP 36.4–36.7; O2SAT 95–100
[2021-04-28] MEDS: LEVOTHYROXINE SODIUM 75 MCG TABLET PO (05:37)
[2021-04-28 06:02] LABS: INR 1.2; Prothrombin Time 15.2 Seconds (11.1-14.7)
[2021-04-28 06:03] LABS: Alanine Aminotransferase 33 U/L (4-35); Albumin Level 3.3 g/dL (3.5-5.1); Alkaline Phosphatase 98 U/L (38-126); Anion Gap 6 mmol/L (8-16); Aspartate Amino Transferase 47 U/L (14-36); Bilirubin,Total 0.9 mg/dL (0.2-1.3); Blood Urea Nitrogen 9 mg/dL (7-17); Calcium 7.9 mg/dL (8.4-10.2); Carbon Dioxide 30 mmol/L (22-30); Chloride 98 mmol/L (98-107); Estimated CRCL calculation 132 ml/min; Estimated Glomerular Filt Rate > 60; Glucose 246 mg/dL (65-110); Potassium 3.1 mmol/L (3.4-5.0); Sodium 134 mmol/L (137-145)
[2021-04-28 08:27] LABS: Glucose Point of Care 224 mg/dl (65-105)
[2021-04-28] MEDS: ALBUTEROL SULFATE (*SP) INHALER 2 PUFF INHALATION ×4 (09:45→21:05)
[2021-04-28] MEDS: ENOXAPARIN 40 MG/0.4 ML SYRINGE SUB-Q ×2 (10:10→20:12)
[2021-04-28] MEDS: PANTOPRAZOLE SODIUM IV 40 MG VIAL IV PUSH ×2 (10:10→20:12)
[2021-04-28] MEDS: lisinopriL 5 MG TABLET PO (10:10)
[2021-04-28] MEDS: ROSUVASTATIN 10 MG TABLET 20 MG PO (10:10)
[2021-04-28] MEDS: INSULIN GLARGINE (*BKC) 100 UNITS/ML 10 UNITS SUB-Q (10:38)
[2021-04-28] MEDS: INSULIN ASPART (*BKC) 100 UNITS/ML SUB-Q ×3 (10:39→18:44)
[2021-04-28 12:23] LABS: Glucose Point of Care 255 mg/dl (65-105)
[2021-04-28] MEDS: METOPROLOL TARTRATE INJ 5 MG/5 ML VIAL 2.5 MG IV PUSH (13:16)
[2021-04-28] MEDS: hydrOXYzine HCL 25 MG TABLET 50 MG PO (13:16)
--- NOTE | 2021-04-28 15:07 | PM.PNPUL ---
Progress Note: A&P Assessment and Plan (1) COVID-19 in immunocompromised patient: Code(s): U07.1 - COVID-19; D84.9 - Immunodeficiency, unspecified Status: Acute Assessment and Plan: Her test for COVID is negative, however she has this condition clinically. Her chest CT, high O2 demand, prolonged course of illness, and 'happy hypoxemic' presentation are consistent with COVID pneumonia. Patients on Humira/ adalimumab and other TNF-alpha inhibitors can have false positive tests for COVID, however false negatives can also happen. IT is complicated. I discussed this patient's status with Dr Keyla Fields today and Dr Ricci yesterday. She appears to have COVID with a false negative test, and we will start IV dexamethasone 6 mg a day and respiratory isolation. She is too far out for benefot from remdesivir. Close clinical follow up. I spoke with the patient and Vickey at the bedside. (2) Pneumonia: Qualifiers: Laterality: bilateral Lung location: lower lobe of lung Pneumonia type: due to unspecified organism Qualified Code(s): J18.9 - Pneumonia, unspecified organism Code(s): J18.9 - Pneumonia, unspecified organism Status: Acute Assessment and Plan: 65-year-old immunocompromised female chronically on alpha anti TNF agent for psoriasis, vaccinated with 2 doses and additional booster for COVID, presented with febrile illness and shortness of breath that started approximately 1 month ago. The disease tempo has been fully clarified with the patient who stated that she became sick about 1 month prior to this admission. 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 On admission, she was found to have bilateral pulmonary infiltrates hypoxemia, low-grade temperature, mildly elevated D-dimers and CRP, and a borderline WBC with lymphopenia. Patient had 1- COVID test negative prior to coming to the hospital, 2nd negative COVID test on the day of admission Nov 2 and a 3rd COVID negative test Nov 3. Other tests for infectious agents are pending as of now. The clinical condition has been gradually worseing with more O2 needed. Her shortness of breath is stable. The chest CT Nov 2 showed ground-glass opacities primarily subpleurally and at bases bilaterally, which to a great extent resemble those of COVID pneumonia. The differential diagnosis, in addition to COVID pneumonia, includes other atypical pneumonia related to viruses, or to other organisms and also NSIP given the patient's autoimmune disease background and treatment with anti-TNF agents. Given the characteristic CT findings resembling COVID 19 pneumonia and despite recent booster vaccine at about 6 months after the two-dose vaccination and the negative PCR testing this may still be COVID pneumonia as the patient is severely immunocompromised, and the infection started about 1 month ago, which is enough time for the PCR testing to become negative. Since admission the CRP is now in the normal range as are the D-dimers. Plan is as follows: Start dexamethasone 6 mg a day for 10 days, respiratory isolation, continue with the current treatment which includes antibiotics for community-acquired pneumonia, continue with DVT prophylaxis and current supplemental oxygen. Follow CXRs, labs. Bronchoscopy was not done as the yield would be low and risk for worsening hypoxemia and intubation is high. If she becomes intubated, we may consider bronchoscopy with BAL. (3) Acute respiratory failure with hypoxia: Code(s): J96.01 - Acute respiratory failure with hypoxia Status: Acute Assessment and Plan: O2 demand remains high, 60L min high flow and 90%. Saturation is 95%. She is not able to sleep on her stomach due to heartburn. l
--- NOTE | 2021-04-28 16:11 | PM.IMPN ---
Progress Note: A&P Assessment and Plan (1) Acute respiratory failure with hypoxia: Code(s): J96.01 - Acute respiratory failure with hypoxia Status: Acute Assessment and Plan: Patient is on 15 L of oxygen by nasal cannula (2) Pseudohyponatremia: Code(s): R79.89 - Other specified abnormal findings of blood chemistry Status: Acute Assessment and Plan: Likely a combination of poor oral intake and some hyperglycemia Continue to monitor Will try for p.o. intake due to her tenuous respiratory status (3) Type 2 diabetes mellitus without complications: Qualifiers: Diabetes mellitus senior care insulin use: without senior care use Qualified Code(s): E11.9 - Type 2 diabetes mellitus without complications Code(s): E11.9 - Type 2 diabetes mellitus without complications Status: Acute Assessment and Plan: Holding metformin Holding glimepiride Insulin sliding scale as needed Accu-Cheks AC and HS (4) Psoriasis: Code(s): L40.9 - Psoriasis, unspecified Status: Acute (5) Lumbar back pain: Code(s): M54.5 - Low back pain Status: Acute Assessment and Plan: Tylenol p.r.n. (6) Hypothyroidism: Qualifiers: Hypothyroidism type: unspecified Qualified Code(s): E03.9 - Hypothyroidism, unspecified Code(s): E03.9 - Hypothyroidism, unspecified Status: Acute Assessment and Plan: Continue Synthroid Follow-up in the outpatient setting (7) Pneumonia: Qualifiers: Pneumonia type: due to unspecified organism Laterality: bilateral Lung location: lower lobe of lung Qualified Code(s): J18.9 - Pneumonia, unspecified organism Code(s): J18.9 - Pneumonia, unspecified organism Status: Acute Assessment and Plan: 04/25/21 Acute hypoxemic respiratory failure on 15 L Workup started for atypical pneumonia Repeat COVID PCR Consult pulmonology Patient on Humira unclear if she has pneumonia associated with immunocompromise state Continue current care A.m. labs 04/26/21 seen by pulm atypical PNA workup pending including repeat COVID testing pulm recs appreciated no overnight events cont current care O2 on high flow but stable BG elevated (received steroids) start Lantus 10U in addition to ISS med dose 04/27/21 lantus adjusted now on HFNC now at 60L 80% workup on going pulm following cont current care 04/28/21 tachycardia metoprolol ordered improve hypoxia pulm managing HFNC 60L 80% prednisone 6mg IV BID cont current care Subjective Date/time seen: 04/28/21 16:11 pt ok sitting up in bed on HFNC pending pulm consult, no new complaints Exam Narrative: GEN: NAD, AAOx3, cooperative HEENT: NCAT, MMM, EOMI Neck: no JVD Lungs: on HFNC 60L 80% no use of accessory muscles symmetric chest rise Ext: moves all, no cyanosis, no clubbing, no edema, wide spread psoriatic rash Neuro: Cranial nerves intact no focal neurological deficits appreciated Psych: Mood and affect congruent Objective Data Vital Signs Vital Signs: Vital Signs - 24 hr 04/27/21 16:43 04/27/21 18:00 04/27/21 20:00 Temperature 96.9 F L 97.5 F L Pulse Rate 106 H 92 105 H Respiratory Rate 20 Blood Pressure 131/64 139/87 Pulse Oximetry 89 L 96 04/27/21 20:36 04/27/21 22:00 04/27/21 23:46 Temperature 97.5 F L Pulse Rate 114 H 100 105 H Respiratory Rate 24 H Blood Pressure 133/83 Pulse Oximetry 91 100 04/27/21 23:53 04/28/21 00:00 04/28/21 02:00 Temperature Pulse Rate 105 H 96 98 Respiratory Rate 24 H Blood Pressure Pulse Oximetry 100 04/28/21 03:31 04/28/21 03:35 04/28/21 04:00 Temperature 98.1 F Pulse Rate 100 100 105 H Respiratory Rate 24 H 24 H Blood Pressure 144/90 H Pulse Oximetry 100 100 04/28/21 05:58 04/28/21 08:00 04/28/21 09:47 Temperature 97.7 F Pulse Rate 105 H 102 H 98 Respiratory Rate 18 24 H Blood Pressure 119/101 H
[2021-04-28 17:28] LABS: D Dimer 2.93 ug/mL (<0.48)
[2021-04-28 17:44] LABS: Glucose Point of Care 231 mg/dl (65-105)
[2021-04-28 17:52] LABS: CRP 7.9 mg/dL (<1.0); Lactate Dehydrogenase 1419 U/L (313-618)
[2021-04-28 20:15] LABS: Glucose Point of Care 313 mg/dl (65-105)
[2021-04-29] VITALS (14 sets, daily range): BP systolic 124–165; BP diastolic 69–95; PULSE 81–105; RESP 22–26; TEMP 35.9–36.8; O2SAT 93–99
[2021-04-29] MEDS: ALBUTEROL SULFATE (*SP) INHALER 2 PUFF INHALATION ×4 (00:38→20:18)
--- NOTE | 2021-04-29 01:06 | PC.NURSE ---
Daylight Savings Time For Daylight Savings Time Ending in the Fall - Clocks are moved back. For Daylight Savings Time Beginning in the Spring - Clocks are moved ahead. For [facility], the time of change occurs at 0200 hrs. Time is taken from the fountain server. This entry on the patient's chart recognizes the change in time reflected during documentation. Example: 2 entries for vital signs may be charted for 0200 hrs.
--- NOTE | 2021-04-29 05:26 | PCRTNOTE ---
high flow water changed by nurse in night
[2021-04-29] MEDS: LEVOTHYROXINE SODIUM 75 MCG TABLET PO (07:03)
[2021-04-29] MEDS: CENTRAL LINE FLUSH 10 ML IV PUSH ×3 (07:04→22:07)
[2021-04-29] MEDS: CENTRAL LINE FLUSH 20 ML IV PUSH (07:04)
[2021-04-29] MEDS: INSULIN ASPART (*BKC) 100 UNITS/ML SUB-Q ×3 (09:11→17:54)
[2021-04-29] MEDS: INSULIN GLARGINE (*BKC) 100 UNITS/ML 10 UNITS SUB-Q ×2 (09:11→11:48)
[2021-04-29] MEDS: ENOXAPARIN 40 MG/0.4 ML SYRINGE SUB-Q ×2 (09:11→20:05)
[2021-04-29] MEDS: PANTOPRAZOLE SODIUM IV 40 MG VIAL IV PUSH ×2 (09:13→20:05)
[2021-04-29] MEDS: lisinopriL 5 MG TABLET PO (09:13)
[2021-04-29] MEDS: ROSUVASTATIN 10 MG TABLET 20 MG PO (09:14)
[2021-04-29 09:51] LABS: Glucose Point of Care 227 mg/dl (65-105)
[2021-04-29 10:04] LABS: Alanine Aminotransferase 35 U/L (4-35); Albumin Level 3.3 g/dL (3.5-5.1); Alkaline Phosphatase 85 U/L (38-126); Anion Gap 7 mmol/L (8-16); Aspartate Amino Transferase 43 U/L (14-36); Blood Urea Nitrogen 12 mg/dL (7-17); Calcium 8.6 mg/dL (8.4-10.2); Carbon Dioxide 28 mmol/L (22-30); Chloride 99 mmol/L (98-107); Estimated CRCL calculation 168 ml/min; Estimated Glomerular Filt Rate > 60; Glucose 248 mg/dL (65-110); Potassium 4.5 mmol/L (3.4-5.0); Sodium 134 mmol/L (137-145)
[2021-04-29] MEDS: hydrOXYzine HCL 25 MG TABLET 50 MG PO (13:05)
[2021-04-29 13:10] LABS: Glucose Point of Care 287 mg/dl (65-105)
--- NOTE | 2021-04-29 15:07 | PM.IMPN ---
Progress Note: A&P Assessment and Plan (1) Acute respiratory failure with hypoxia: Code(s): J96.01 - Acute respiratory failure with hypoxia Status: Acute (2) Pseudohyponatremia: Code(s): R79.89 - Other specified abnormal findings of blood chemistry Status: Acute (3) Type 2 diabetes mellitus without complications: Qualifiers: Diabetes mellitus terminal carman insulin use: without correction use Qualified Code(s): E11.9 - Type 2 diabetes mellitus without complications Code(s): E11.9 - Type 2 diabetes mellitus without complications Status: Acute (4) Psoriasis: Code(s): L40.9 - Psoriasis, unspecified Status: Acute (5) Lumbar back pain: Code(s): M54.5 - Low back pain Status: Acute Assessment and Plan: Tylenol p.r.n. (6) Hypothyroidism: Qualifiers: Hypothyroidism type: unspecified Qualified Code(s): E03.9 - Hypothyroidism, unspecified Code(s): E03.9 - Hypothyroidism, unspecified Status: Acute (7) Pneumonia: Qualifiers: Pneumonia type: due to unspecified organism Laterality: bilateral Lung location: lower lobe of lung Qualified Code(s): J18.9 - Pneumonia, unspecified organism Code(s): J18.9 - Pneumonia, unspecified organism Status: Acute Assessment and Plan: 04/24/21 Patient is on 15 L of oxygen by nasal cannula Likely a combination of poor oral intake and some hyperglycemia Continue to monitor Will try for p.o. intake due to her tenuous respiratory status Holding metformin Holding glimepiride Insulin sliding scale as needed Accu-Cheks AC and HSContinue Synthroid Follow-up in the outpatient setting 04/25/21 Acute hypoxemic respiratory failure on 15 L Workup started for atypical pneumonia Repeat COVID PCR Consult pulmonology Patient on Humira unclear if she has pneumonia associated with immunocompromise state Continue current care A.m. labs 04/26/21 seen by pulm atypical PNA workup pending including repeat COVID testing pulm recs appreciated no overnight events cont current care O2 on high flow but stable BG elevated (received steroids) start Lantus 10U in addition to ISS med dose 04/27/21 lantus adjusted now on HFNC now at 60L 80% workup on going pulm following cont current care 04/28/21 tachycardia metoprolol ordered improve hypoxia pulm managing HFNC 60L 80% steroid 6mg IV BID cont current care 04/29/21 dexamethasone 6mg IV BID lantus increased to 20U BID ISS to high dose cont supplemental O2 HFNC pulm following recs appreciated pt out of the window x antiviral therapy Subjective Date/time seen: 04/29/21 15:07 pt doing ok stable on HFNC 60L 80% reports that she is feeling less anxious since she has been getting medicine for this complaint and was finally able to sleep last night review of plan of care with pt she understands that despite negative covid tests clinically she appears to have a COVID-19 infection and we are treating her as such . she agrees to any treatment that we recommend to her Exam Narrative: GEN: NAD, AAOx3, cooperative HEENT: NCAT, MMM, EOMI Neck: no JVD Lungs: on HFNC 60L 80% no use of accessory muscles symmetric chest rise Ext: moves all, no cyanosis, no clubbing, no edema, wide spread psoriatic rash Neuro: Cranial nerves intact no focal neurological deficits appreciated Psych: Mood and affect congruent Objective Data Vital Signs Vital Signs: Vital Signs - 24 hr 04/28/21 21:14 04/28/21 22:00 04/28/21 22:22 Temperature Pulse Rate 112 H 117 H Respiratory Rate Blood Pressure Pulse Oximetry 95 04/29/21 00:00 04/29/21 01:46 CDT 04/29/21 04:00 Temperature 97.8 F 97.7 F Pulse Rate 91 99 85 Respiratory Rate 24 H 24 H Blood Pressure 165/85 H 124/95 H Pulse Oximetry 99 94 04/29/21 06:00 04/29/21 08:00 04/29/21 10:00 Temperature 96.8 F L Pulse Rate 96 81 99 Respiratory Rate
--- NOTE | 2021-04-29 15:41 | PM.PNPUL ---
Progress Note: A&P Assessment and Plan (1) COVID-19 in immunocompromised patient: Code(s): U07.1 - COVID-19; D84.9 - Immunodeficiency, unspecified Status: Acute Assessment and Plan: Her test for COVID is negative, however she has COVID clinically. Her chest CT, high O2 demand, prolonged course of illness, and 'happy hypoxemic' presentation are consistent with COVID pneumonia. Patients on Humira/ adalimumab and other TNF-alpha inhibitors can have false positive tests for COVID, however false negatives can also happen. She appears to have COVID with a false negative test. Nov 6, she started IV dexamethasone 6 mg a day which seems to be helping. Saturation is better, and she can have AirVo weaned. SHe will need higher flows with exertion. (2) Pneumonia: Qualifiers: Laterality: bilateral Lung location: lower lobe of lung Pneumonia type: due to unspecified organism Qualified Code(s): J18.9 - Pneumonia, unspecified organism Code(s): J18.9 - Pneumonia, unspecified organism Status: Acute Assessment and Plan: 65-year-old immunocompromised female chronically on alpha anti TNF agent for psoriasis, vaccinated with 2 doses and additional booster for COVID, presented with febrile illness and shortness of breath that started approximately 1 month ago. The disease tempo has been fully clarified with the patient who stated that she became sick about 1 month prior to this admission. 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 On admission, she was found to have bilateral pulmonary infiltrates hypoxemia, low-grade temperature, mildly elevated D-dimers and CRP, and a borderline WBC with lymphopenia. Patient had 1- COVID test negative prior to coming to the hospital, 2nd negative COVID test on the day of admission Nov 2 and a 3rd COVID negative test Nov 3. Other tests for infectious agents are pending as of now. The clinical condition has been gradually worseing with more O2 needed. Her shortness of breath is stable. The chest CT Nov 2 showed ground-glass opacities primarily subpleurally and at bases bilaterally, which to a great extent resemble those of COVID pneumonia. The differential diagnosis, in addition to COVID pneumonia, includes other atypical pneumonia related to viruses, or to other organisms and also NSIP given the patient's autoimmune disease background and treatment with anti-TNF agents. Given the characteristic CT findings resembling COVID 19 pneumonia and despite recent booster vaccine at about 6 months after the two-dose vaccination and the negative PCR testing this may still be COVID pneumonia as the patient is severely immunocompromised, and the infection started about 1 month ago, which is enough time for the PCR testing to become negative. Since admission the CRP is now in the normal range as are the D-dimers. Plan is as follows: Continue dexamethasone 6 mg a day for 10 days, respiratory isolation, continue with the current treatment which includes antibiotics for community-acquired pneumonia, continue with DVT prophylaxis and current supplemental oxygen. Follow CXRs, labs. Bronchoscopy was not done as the yield would be low and risk for worsening hypoxemia and intubation is high. If she becomes intubated, we may consider bronchoscopy with BAL. (3) Acute respiratory failure with hypoxia: Code(s): J96.01 - Acute respiratory failure with hypoxia Status: Acute Assessment and Plan: O2 demand remains high, 60L min high flow and 90%. Saturation is 95%. She is not able to sleep on her stomach due to heartburn. l (4) Psoriasis: Code(s): L40.9 - Psoriasis, unspecified Status: Acute Assessment and Plan: She was on Humiria prior to admissi
--- NOTE | 2021-04-29 17:05 | PCRCNOTE ---
Window of time for administration has passed. See next scheduled administration.
[2021-04-29 17:54] LABS: Glucose Point of Care 272 mg/dl (65-105)
[2021-04-29] MEDS: INSULIN GLARGINE (*BKC) 100 UNITS/ML 20 UNITS SUB-Q (17:55)
[2021-04-29 21:24] LABS: Glucose Point of Care 373 mg/dl (65-105)
[2021-04-29] MEDS: INSULIN ASPART (*BKC) 100 UNITS/ML 8 UNITS SUB-Q (22:06)
[2021-04-29 23:47] LABS: Legionella pneumophila Ag Ur Not Detected (Not Detected)
[2021-04-30] VITALS (27 sets, daily range): BP systolic 105–137; BP diastolic 63–82; PULSE 51–114; RESP 18–24; TEMP 36–36.6; O2SAT 85–100
[2021-04-30 00:07] LABS: Glucose Point of Care 269 mg/dl (65-105)
[2021-04-30] MEDS: ALBUTEROL SULFATE (*SP) INHALER 2 PUFF INHALATION ×7 (00:55→23:32)
[2021-04-30] MEDS: LEVOTHYROXINE SODIUM 75 MCG TABLET PO (05:38)
[2021-04-30] MEDS: CENTRAL LINE FLUSH 10 ML IV PUSH ×3 (05:38→20:18)
[2021-04-30] MEDS: lisinopriL 5 MG TABLET PO (08:12)
[2021-04-30] MEDS: ENOXAPARIN 40 MG/0.4 ML SYRINGE SUB-Q ×2 (08:12→20:17)
[2021-04-30] MEDS: PANTOPRAZOLE SODIUM IV 40 MG VIAL IV PUSH ×2 (08:13→20:16)
[2021-04-30] MEDS: ROSUVASTATIN 10 MG TABLET 20 MG PO (08:14)
[2021-04-30] MEDS: INSULIN GLARGINE (*BKC) 100 UNITS/ML 20 UNITS SUB-Q (08:16)
[2021-04-30] MEDS: INSULIN ASPART (*BKC) 100 UNITS/ML SUB-Q ×4 (08:31→22:32)
[2021-04-30 08:43] LABS: Glucose Point of Care 274 mg/dl (65-105)
[2021-04-30] MEDS: hydrOXYzine HCL 25 MG TABLET 50 MG PO (09:33)
--- NOTE | 2021-04-30 10:59 | PM.PNPUL ---
Progress Note: A&P Assessment and Plan (1) COVID-19 in immunocompromised patient: Code(s): U07.1 - COVID-19; D84.9 - Immunodeficiency, unspecified Status: Acute Assessment and Plan: 04/29 Her test for COVID is negative, however she has this condition clinically. Her chest CT, high O2 demand, prolonged course of illness, and 'happy hypoxemic' presentation are consistent with COVID pneumonia. Patients on Humira/ adalimumab and other TNF-alpha inhibitors can have false positive tests for COVID, however false negatives can also happen. She appears to have COVID with a false negative test. Apr 28, she started IV dexamethasone 6 mg a day which seems to be helping. Saturation is better, and she can have AirVO weaned. SHe will need higher flows with exertion. 04/30 I agree that this patient most likely has COVID pneumonia. influenza negative. urine Legionella antigen negative. HIV negative. as above she has tested for COVID negative 3 times. I called our laboratory to send a COVID IgM antibody study but unfortunately we have none so I will order a IgG and total antibody and I will also order [facility] IgG and IgM total. if she were IgM positive this would indicate an acute infection. I will decrease patient's dexamethasone from 6 mg IV b.i.d. to 6 mg IV q.day. Overall patient is clinically stable and will follow at this time without Remdesivir, baracitinib or convalescent plasma. If the above IgG tests were negative we will consider convalescent plasma. Discussed with Dr. Dale (2) Pneumonia: Qualifiers: Pneumonia type: due to unspecified organism Laterality: bilateral Lung location: lower lobe of lung Qualified Code(s): J18.9 - Pneumonia, unspecified organism Code(s): J18.9 - Pneumonia, unspecified organism Status: Acute Assessment and Plan: 65-year-old immunocompromised female chronically on alpha anti TNF agent for psoriasis, vaccinated with 2 doses and additional booster for COVID, presented with febrile illness and shortness of breath that started approximately 1 month ago. The disease tempo has been fully clarified with the patient who stated that she became sick about 1 month prior to this admission. 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 On admission, she was found to have bilateral pulmonary infiltrates hypoxemia, low-grade temperature, mildly elevated D-dimers and CRP, and a borderline WBC with lymphopenia. Patient had 1- COVID test negative prior to coming to the hospital, 2nd negative COVID test on the day of admission Nov 2 and a 3rd COVID negative test Nov 3. Other tests for infectious agents are pending as of now. The clinical condition has been gradually worseing with more O2 needed. Her shortness of breath is stable. The chest CT Nov 2 showed ground-glass opacities primarily subpleurally and at bases bilaterally, which to a great extent resemble those of COVID pneumonia. The differential diagnosis, in addition to COVID pneumonia, includes other atypical pneumonia related to viruses, or to other organisms and also NSIP given the patient's autoimmune disease background and treatment with anti-TNF agents. Given the characteristic CT findings resembling COVID 19 pneumonia and despite recent booster vaccine at about 6 months after the two-dose vaccination and the negative PCR testing this may still be COVID pneumonia as the patient is severely immunocompromised, and the infection started about 1 month ago, which is enough time for the PCR testing to become negative. Since admission the CRP is now in the normal range as are the D-dimers. Plan is as follows: Start dexamethasone 6 mg a day for 10 days, respiratory isolation, continue with the current treatment which includes antibiotics for community-acquired pneumonia, continue with DVT prophylaxis and current supplemental oxygen. Follow
[2021-04-30 12:08] LABS: Glucose Point of Care 302 mg/dl (65-105)
--- NOTE | 2021-04-30 16:06 | PM.IMPN ---
Progress Note: A&P Assessment and Plan (1) Acute respiratory failure with hypoxia: Code(s): J96.01 - Acute respiratory failure with hypoxia Status: Acute (2) Pseudohyponatremia: Code(s): R79.89 - Other specified abnormal findings of blood chemistry Status: Acute (3) Type 2 diabetes mellitus without complications: Qualifiers: Diabetes mellitus retirement insulin use: without retirement use Qualified Code(s): E11.9 - Type 2 diabetes mellitus without complications Code(s): E11.9 - Type 2 diabetes mellitus without complications Status: Acute (4) Psoriasis: Code(s): L40.9 - Psoriasis, unspecified Status: Acute (5) Lumbar back pain: Code(s): M54.5 - Low back pain Status: Acute Assessment and Plan: Tylenol p.r.n. (6) Hypothyroidism: Qualifiers: Hypothyroidism type: unspecified Qualified Code(s): E03.9 - Hypothyroidism, unspecified Code(s): E03.9 - Hypothyroidism, unspecified Status: Acute (7) Pneumonia: Qualifiers: Pneumonia type: due to unspecified organism Laterality: bilateral Lung location: lower lobe of lung Qualified Code(s): J18.9 - Pneumonia, unspecified organism Code(s): J18.9 - Pneumonia, unspecified organism Status: Acute Assessment and Plan: 04/24/21 Patient is on 15 L of oxygen by nasal cannula Likely a combination of poor oral intake and some hyperglycemia Continue to monitor Will try for p.o. intake due to her tenuous respiratory status Holding metformin Holding glimepiride Insulin sliding scale as needed Accu-Cheks AC and HSContinue Synthroid Follow-up in the outpatient setting 04/25/21 Acute hypoxemic respiratory failure on 15 L Workup started for atypical pneumonia Repeat COVID PCR Consult pulmonology Patient on Humira unclear if she has pneumonia associated with immunocompromise state Continue current care A.m. labs 04/26/21 seen by pulm atypical PNA workup pending including repeat COVID testing pulm recs appreciated no overnight events cont current care O2 on high flow but stable BG elevated (received steroids) start Lantus 10U in addition to ISS med dose 04/27/21 lantus adjusted now on HFNC now at 60L 80% workup on going pulm following cont current care 04/28/21 tachycardia metoprolol ordered improve hypoxia pulm managing HFNC 60L 80% steroid 6mg IV BID cont current care 04/29/21 dexamethasone 6mg IV BID lantus increased to 20U BID ISS to high dose cont supplemental O2 HFNC pulm following recs appreciated pt out of the window x antiviral therapy 04/30/2021 Continue Decadron Supplemental oxygen via Airvo oxygen requirement similar Pulmonary following Will stop her humira Continue Lovenox 40 mg subQ q.12 hours All testing for COVID multiple times of the negative the strongly suspected perc and active COVID infection Continue ceftriaxone and azithromycin Lantus 25 units b.i.d. increased due to hyperglycemia likely related to steroid. Steroid dosing is also lowered from 6 mg twice daily to 6 mg daily today Atarax p.r.n. for anxiety Discussed with Dr. Reese with pulmonary Subjective Date/time seen: 04/30/21 16:06 Interval history: Chart reviewed. Patient reports she had sort of panic attack this morning as her water in her oxygen ran out. She is feeling better now though. She has shortness of breath with minimal exertion. Denies any chest pains he slept 2 days and has been feeling better that way. Review of Systems Review of Systems: All systems reviewed & are unremarkable except as noted in HPI and below (HPI) Exam Narrative: GEN: NAD, AAOx3, cooperative HEENT: NCAT, MMM, EOMI Neck: no JVD supple Lungs: on HFNC 60L 90% no use of accessory muscles symmetric chest rise Ext: moves all, no cyanosis, no clubbing, no edema, wide spread psoriatic rash Neuro: Cranial nerves intact no focal neurological deficits ap
[2021-04-30 16:34] LABS: Glucose Point of Care 297 mg/dl (65-105)
[2021-04-30] MEDS: INSULIN GLARGINE (*BKC) 100 UNITS/ML 25 UNITS SUB-Q (17:32)
[2021-04-30] MEDS: METOPROLOL TARTRATE 12.5 MG TABLET PO (20:16)
[2021-04-30 22:08] LABS: Glucose Point of Care 290 mg/dl (65-105)
[2021-05-01] VITALS (26 sets, daily range): BP systolic 110–147; BP diastolic 55–86; PULSE 71–114; RESP 14–27; TEMP 35.9–36.6; O2SAT 86–97
[2021-05-01] MEDS: ALBUTEROL SULFATE (*SP) INHALER 2 PUFF INHALATION ×4 (03:55→21:05)
[2021-05-01 04:42] LABS: Hematocrit 37.1 % (37.0-47.0); Hemoglobin 12.3 g/dL (12.0-15.0); Immature Granulocyte Absolute 0.03 K/mm3 (0.00-0.031); Immature Granulocyte Percent A 0.5 % (0-0.5); Lymphocytes Absolute Auto 0.51 K/mm3 (0.9-3.2); Lymphocytes Percent Auto 8.2 % (18.3-44.2); Mean Corpuscular HGB Conc 33.2 g/dl (32-36); Mean Corpuscular Hemoglobin 27.2 pg (26-34); Mean Corpuscular Volume 82.1 fl (80-100); Mean Platelet Volume 11.6 fl (7.4-10.4); Monocytes Absolute Auto 0.5 K/mm3 (0.1-0.6); Monocytes Percent Auto 8.2 % (2.6-8.5); Neutrophils Absolute Auto 5.2 K/mm3 (1.3-6.7); Neutrophils Percent Auto 83.1 % (45.5-73.1); Platelet Count Result 128 k/mm3 (150-375); Red Blood Count 4.52 M/mm3 (4.2-5.4); Red Cell Distribution Width 17.2 % (11.5-14.5); White Blood Count 6.2 K/mm3 (4.5-10.0)
[2021-05-01 05:03] LABS: Anion Gap 8 mmol/L (8-16); Blood Urea Nitrogen 12 mg/dL (7-17); Calcium 8.4 mg/dL (8.4-10.2); Carbon Dioxide 26 mmol/L (22-30); Chloride 99 mmol/L (98-107); Estimated CRCL calculation 170 ml/min; Estimated Glomerular Filt Rate > 60; Glucose 254 mg/dL (65-110); Potassium 4.3 mmol/L (3.4-5.0); Sodium 133 mmol/L (137-145)
[2021-05-01] MEDS: LEVOTHYROXINE SODIUM 75 MCG TABLET PO (06:02)
[2021-05-01] MEDS: CENTRAL LINE FLUSH 10 ML IV PUSH ×3 (06:02→21:39)
[2021-05-01] MEDS: INSULIN ASPART (*BKC) 100 UNITS/ML SUB-Q ×3 (08:24→17:34)
[2021-05-01] MEDS: INSULIN GLARGINE (*BKC) 100 UNITS/ML 35 UNITS SUB-Q ×2 (08:25→21:34)
--- NOTE | 2021-05-01 08:26 | PM.PNPUL ---
Progress Note: A&P Assessment and Plan (1) COVID-19 in immunocompromised patient: Code(s): U07.1 - COVID-19; D84.9 - Immunodeficiency, unspecified Status: Acute Assessment and Plan: 04/29 Her test for COVID is negative, however she has this condition clinically. Her chest CT, high O2 demand, prolonged course of illness, and 'happy hypoxemic' presentation are consistent with COVID pneumonia. Patients on Humira/ adalimumab and other TNF-alpha inhibitors can have false positive tests for COVID, however false negatives can also happen. She appears to have COVID with a false negative test. Apr 28, she started IV dexamethasone 6 mg a day which seems to be helping. Saturation is better, and she can have AirVO weaned. SHe will need higher flows with exertion. 04/30 I agree that this patient most likely has COVID pneumonia. influenza negative. urine Legionella antigen negative. HIV negative. as above she has tested for COVID negative 3 times. I called our laboratory to send a COVID IgM antibody study but unfortunately we have none so I will order a IgG and total antibody and I will also order [facility] IgG and IgM total. if she were IgM positive this would indicate an acute infection. I will decrease patient's dexamethasone from 6 mg IV b.i.d. to 6 mg IV q.day. Overall patient is clinically stable and will follow at this time without Remdesivir, baracitinib or convalescent plasma. If the above IgG tests were negative we will consider convalescent plasma. 05/01 patient [id number]-1 (ECLIA) test is our test for IgG and is positive. Total (IgG, IgM and IgA) test pending. (2) Pneumonia: Qualifiers: Laterality: bilateral Lung location: lower lobe of lung Pneumonia type: due to unspecified organism Qualified Code(s): J18.9 - Pneumonia, unspecified organism Code(s): J18.9 - Pneumonia, unspecified organism Status: Acute Assessment and Plan: 65-year-old immunocompromised female chronically on alpha anti TNF agent for psoriasis (last dose of 40 mg on 04/25/21), vaccinated with 2 doses and additional booster for COVID, presented with febrile illness and shortness of breath that started approximately 1 month ago. The disease tempo has been fully clarified with the patient who stated that she became sick about 1 month prior to this admission. 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 On admission, she was found to have bilateral pulmonary infiltrates hypoxemia, low-grade temperature, mildly elevated D-dimers and CRP, and a borderline WBC with lymphopenia. Patient had 1- COVID test negative prior to coming to the hospital, 2nd negative COVID test on the day of admission Nov 2 and a 3rd COVID negative test Nov 3. Other tests for infectious agents are pending as of now. The clinical condition has been gradually worsening with more O2 needed. Her shortness of breath is stable. The chest CT Nov 2 showed ground-glass opacities primarily subpleurally and at bases bilaterally, which to a great extent resemble those of COVID pneumonia. The differential diagnosis, in addition to COVID pneumonia, includes other atypical pneumonia related to viruses, or to other organisms and also NSIP given the patient's autoimmune disease background and positive serologies (01/30/21 she ahd double strand DNA, Mosqueda antibody, APRON CLEANER antibody and chromatin antibody are all positive) and treatment with anti-TNF agents. Given the characteristic CT findings resembling COVID 19 pneumonia and despite recent booster vaccine 01/2021 at about 6 months after the two-dose vaccination and the negative PCR testing this may still be COVID pneumonia as the patient is severely immunocompromised, and the infection started about 1 month ago, which is enough time for the PCR testing to become negative. 04/29 Plan is as follows: Start dexamethasone 6 mg a day for 10 days, respiratory isolation, continue with the current treatment
[2021-05-01 08:31] LABS: Glucose Point of Care 240 mg/dl (65-105)
[2021-05-01] MEDS: lisinopriL 5 MG TABLET PO (09:50)
[2021-05-01] MEDS: ROSUVASTATIN 10 MG TABLET 20 MG PO (09:50)
[2021-05-01] MEDS: METOPROLOL TARTRATE 12.5 MG TABLET PO ×2 (09:51→21:35)
[2021-05-01] MEDS: ENOXAPARIN 40 MG/0.4 ML SYRINGE SUB-Q ×2 (09:51→21:34)
[2021-05-01] MEDS: PANTOPRAZOLE SODIUM IV 40 MG VIAL IV PUSH ×2 (09:51→21:36)
--- NOTE | 2021-05-01 11:08 | PM.IMPN ---
Progress Note: A&P Assessment and Plan (1) Acute respiratory failure with hypoxia: Code(s): J96.01 - Acute respiratory failure with hypoxia Status: Acute Assessment and Plan: Given her immunocompromised state it is thought that her symptoms are related to related to COVID-19 despite his SARS-CoV-2 PCR I have been negative x3 (One test was negative prior to coming to the hospital and Two tests were negative in the hospital) - patient has had 2 doses of COVID vaccine and also a COVID booster vaccine -negative influenza, negative pneumococcal antigen - HIV is negative -negative size SARS-CoV-2 PCR -04/24/2021: Blood cultures negative x2 -given radiological appearance, immunocompromise state patient is being currently treated as COVID-19 -continue dexamethasone which was initiated on 04/28 -FiO2 requirements are trending down -chest x-ray today showed worsening of the right-sided -patient is in negative fluid balance admission -appreciate pulmonology if evaluation recommendations - 05/01 patient [id number]-GsI-1 (ECLIA) test is our test for IgG and is positive. -Total (IgG, IgM and IgA) test pending. 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 Qualified Code(s): E11.9 - Type 2 diabetes mellitus without complications Code(s): E11.9 - Type 2 diabetes mellitus without complications Status: Acute Assessment and Plan: Patient has history of diabetes, currently hyperglycemic likely related to dexamethasone being given for COVID-19 -continue sliding scale insulin Accu-Chek -increase Lantus -hemoglobin A1c on 01/30/2021 was 9.0 (4) Psoriasis: Code(s): L40.9 - Psoriasis, unspecified Status: Acute Assessment and Plan: Patient has been on Humira prior to admission, currently on hold (5) Lumbar back pain: Code(s): M54.5 - Low back pain Status: Acute Assessment and Plan: Tylenol p.r.n. (6) Hypothyroidism: Qualifiers: Hypothyroidism type: unspecified Qualified Code(s): E03.9 - Hypothyroidism, unspecified Code(s): E03.9 - Hypothyroidism, unspecified Status: Acute Assessment and Plan: Continue levothyroxine (7) Pneumonia: Qualifiers: Pneumonia type: due to unspecified organism Laterality: bilateral Lung location: lower lobe of lung Qualified Code(s): J18.9 - Pneumonia, unspecified organism Code(s): J18.9 - Pneumonia, unspecified organism Status: Acute Assessment and Plan: 04/24/21 Patient is on 15 L of oxygen by nasal cannula Likely a combination of poor oral intake and some hyperglycemia Continue to monitor Will try for p.o. intake due to her tenuous respiratory status Holding metformin Holding glimepiride Insulin sliding scale as needed Accu-Cheks AC and HSContinue Synthroid Follow-up in the outpatient setting 04/25/21 Acute hypoxemic respiratory failure on 15 L Workup started for atypical pneumonia Repeat COVID PCR Consult pulmonology Patient on Humira unclear if she has pneumonia associated with immunocompromise state Continue current care A.m. labs 04/26/21 seen by pulm atypical PNA workup pending including repeat COVID testing pulm recs appreciated no overnight events cont current care O2 on high flow but stable BG elevated (received steroids) start Lantus 10U in addition to ISS med dose 04/27/21 lantus adjusted now on HFNC now at 60L 80% workup on going pulm following cont current care 04/28/21 tachycardia metoprolol ordered improve hypoxia pulm managing HFNC 60L 80% steroid 6mg IV BID cont current care 04/29/21 dexamethasone 6mg IV BID lantus increased to 20U BID ISS to high dose cont s
[2021-05-01 13:09] LABS: Glucose Point of Care 312 mg/dl (65-105)
[2021-05-01 18:09] LABS: Glucose Point of Care 293 mg/dl (65-105)
[2021-05-01 21:51] LABS: Glucose Point of Care 324 mg/dl (65-105)
[2021-05-02] VITALS (26 sets, daily range): BP systolic 113–160; BP diastolic 67–98; PULSE 72–108; RESP 18–24; TEMP 35.7–36.7; O2SAT 87–95
[2021-05-02] MEDS: ALBUTEROL SULFATE (*SP) INHALER 2 PUFF INHALATION ×6 (00:28→20:09)
[2021-05-02 05:09] LABS: Hematocrit 38.3 % (37.0-47.0); Hemoglobin 12.7 g/dL (12.0-15.0); Immature Granulocyte Absolute 0.02 K/mm3 (0.00-0.031); Immature Granulocyte Percent A 0.4 % (0-0.5); Immature Platelet Fraction Pct 6.2 % (0.9-11.2); Lymphocytes Absolute Auto 0.49 K/mm3 (0.9-3.2); Lymphocytes Percent Auto 9.1 % (18.3-44.2); Mean Corpuscular HGB Conc 33.2 g/dl (32-36); Mean Corpuscular Hemoglobin 26.3 pg (26-34); Mean Corpuscular Volume 79.3 fl (80-100); Mean Platelet Volume 10.2 fl (7.4-10.4); Monocytes Absolute Auto 0.5 K/mm3 (0.1-0.6); Monocytes Percent Auto 9.9 % (2.6-8.5); Neutrophils Absolute Auto 4.3 K/mm3 (1.3-6.7); Neutrophils Percent Auto 80.6 % (45.5-73.1); Platelet Count Result 116 k/mm3 (150-375); Red Blood Count 4.83 M/mm3 (4.2-5.4); Red Cell Distribution Width 16.5 % (11.5-14.5); White Blood Count 5.4 K/mm3 (4.5-10.0)
[2021-05-02 05:27] LABS: D Dimer 2.38 ug/mL (<0.48)
[2021-05-02 05:30] LABS: Alanine Aminotransferase 61 U/L (4-35); Albumin Level 3.2 g/dL (3.5-5.1); Alkaline Phosphatase 94 U/L (38-126); Anion Gap 6 mmol/L (8-16); Aspartate Amino Transferase 50 U/L (14-36); Bilirubin,Total 0.7 mg/dL (0.2-1.3); Blood Urea Nitrogen 11 mg/dL (7-17); CRP 0.9 mg/dL (<1.0); Calcium 8.5 mg/dL (8.4-10.2); Carbon Dioxide 28 mmol/L (22-30); Chloride 100 mmol/L (98-107); Estimated CRCL calculation 163 ml/min; Estimated Glomerular Filt Rate > 60; Glucose 233 mg/dL (65-110); Phosphorus 3.5 mg/dL (2.5-4.5); Potassium 3.8 mmol/L (3.4-5.0); Sodium 134 mmol/L (137-145)
[2021-05-02] MEDS: LEVOTHYROXINE SODIUM 75 MCG TABLET PO (06:37)
[2021-05-02] MEDS: CENTRAL LINE FLUSH 10 ML IV PUSH ×3 (06:38→21:21)
--- NOTE | 2021-05-02 07:48 | PM.PNPUL ---
Progress Note: A&P Assessment and Plan (1) COVID-19 in immunocompromised patient: Code(s): U07.1 - COVID-19; D84.9 - Immunodeficiency, unspecified Status: Acute Assessment and Plan: 04/29 Her test for COVID is negative, however she has this condition clinically. Her chest CT, high O2 demand, prolonged course of illness, and 'happy hypoxemic' presentation are consistent with COVID pneumonia. Patients on Humira/ adalimumab and other TNF-alpha inhibitors can have false positive tests for COVID, however false negatives can also happen. She appears to have COVID with a false negative test. Apr 28, she started IV dexamethasone 6 mg a day which seems to be helping. Saturation is better, and she can have AirVO weaned. SHe will need higher flows with exertion. 04/30 I agree that this patient most likely has COVID pneumonia. influenza negative. urine Legionella antigen negative. HIV negative. as above she has tested for COVID negative 3 times. I called our laboratory to send a COVID IgM antibody study but unfortunately we have none so I will order a IgG and total antibody and I will also order [facility] IgG and IgM total. if she were IgM positive this would indicate an acute infection. I will decrease patient's dexamethasone from 6 mg IV b.i.d. to 6 mg IV q.day. Overall patient is clinically stable and will follow at this time without Remdesivir, baracitinib or convalescent plasma. If the above IgG tests were negative we will consider convalescent plasma. 05/01 patient [id number]-[id number]-LqF-1 (ECLIA) test is our test for IgG and is positive. Total (IgG, IgM and IgA) test pending. 05/02 Patient is clinically unchanged. She has dyspnea on exertion and shortness of breath with minimal activity and otherwise no complaints. Currently on 55 L and 70% FiO2 with saturations 94%. Chest x-ray with no change in her bilateral interstitial infiltrates. CRP is 0.9. D-dimer is 2.38. For CT chest today to assess infiltrates and for post COVID ILD and or organizing pneumonia. No indication for tocilizumab or baricitinib currently. Since she has made little improvement with dexamethasone (started 04/28/21) and since she is immunocompromised will consider course of remdesivir. Discussed with Dr. Luna (2) Pneumonia: Qualifiers: Laterality: bilateral Lung location: lower lobe of lung Pneumonia type: due to unspecified organism Qualified Code(s): J18.9 - Pneumonia, unspecified organism Code(s): J18.9 - Pneumonia, unspecified organism Status: Acute Assessment and Plan: 65-year-old immunocompromised female chronically on alpha anti TNF agent for psoriasis (last dose of 40 mg on 04/25/21), vaccinated with 2 doses and additional booster for COVID, presented with febrile illness and shortness of breath that started approximately 1 month ago. The disease tempo has been fully clarified with the patient who stated that she became sick about 1 month prior to this admission. 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 On admission, she was found to have bilateral pulmonary infiltrates hypoxemia, low-grade temperature, mildly elevated D-dimers and CRP, and a borderline WBC with lymphopenia. Patient had 1- COVID test negative prior to coming to the hospital, 2nd negative COVID test on the day of admission Nov 2 and a 3rd COVID negative test Nov 3. Other tests for infectious agents are pending as of now. The clinical condition has been gradually worsening with more O2 needed. Her shortness of breath is stable. The chest CT Nov 2 showed ground-glass opacities primarily subpleurally and at bases bilaterally, which to a great extent resemble those of COVID pneumonia. The differential diagnosis, in addition to COVID pneumonia, includes other atypical pneumonia related to viruses, or to other organisms and also NSIP given the patient's autoimmune disease background and positive serologies (01/30/21 she ahd double
[2021-05-02 07:52] LABS: Rheumatoid Factor < 8.6 IU/ML (<12)
--- NOTE | 2021-05-02 08:45 | PCNWS ---
Weekly nutritional screen. Patient is tolerating current diet with adequate intake. No nutritional needs at this time.
--- NOTE | 2021-05-02 09:00 | PC.NURSE ---
Pt off floor to CT and back to room without issue.
[2021-05-02 09:04] LABS: Glucose Point of Care 181 mg/dl (65-105)
[2021-05-02] MEDS: INSULIN GLARGINE (*BKC) 100 UNITS/ML 40 UNITS SUB-Q ×2 (09:09→21:20)
[2021-05-02] MEDS: ENOXAPARIN 40 MG/0.4 ML SYRINGE SUB-Q ×2 (09:10→21:20)
[2021-05-02] MEDS: ROSUVASTATIN 10 MG TABLET 20 MG PO (09:12)
[2021-05-02] MEDS: lisinopriL 5 MG TABLET PO (09:12)
[2021-05-02] MEDS: METOPROLOL TARTRATE 12.5 MG TABLET PO ×2 (09:13→21:21)
[2021-05-02] MEDS: PANTOPRAZOLE SODIUM IV 40 MG VIAL IV PUSH ×2 (09:13→21:21)
--- NOTE | 2021-05-02 10:46 | WPDINTPN ---
Progress Note: A&P Assessment and Plan (1) Acute respiratory failure with hypoxia: Code(s): J96.01 - Acute respiratory failure with hypoxia Status: Acute Assessment and Plan: presented to the ER on 04/24 for SOB and not feeling well for 2 weeks. Given her immunocompromised state it is thought that her symptoms are related to related to COVID-19 despite his SARS-CoV-2 PCR I have been negative x3 (One test was negative prior to coming to the hospital and Two tests were negative in the hospital) - patient has had 2 doses of COVID vaccine and also a COVID booster vaccine -negative influenza, negative pneumococcal antigen -negative size SARS-CoV-2 PCR -04/24/2021: Blood cultures negative x2 -given radiological appearance, immunocompromise state patient is being currently treated as COVID-19 -continue dexamethasone which was initiated on 04/28 -FiO2 requirements are trending down -chest x-ray today showed worsening of the right-sided -patient is in negative fluid balance admission -appreciate pulmonology if evaluation recommendations - 05/01 patient [id number]-[id number]-SgI-1 (ECLIA) test is our test for IgG and is positive. -Total (IgG, IgM and IgA) test pending. CT chest 05/02/2021: shows worsening diffuse lung disease (2) Pseudohyponatremia: Code(s): R79.89 - Other specified abnormal findings of blood chemistry Status: Acute Assessment and Plan: Hyponatremia is improving (3) Type 2 diabetes mellitus without complications: Qualifiers: Diabetes mellitus local company intermodal truck driver insulin use: without local company intermodal truck driver use Qualified Code(s): E11.9 - Type 2 diabetes mellitus without complications Code(s): E11.9 - Type 2 diabetes mellitus without complications Status: Acute Assessment and Plan: Patient has history of diabetes, currently hyperglycemic likely related to dexamethasone being given for COVID-19 -continue sliding scale insulin Accu-Chek -increase Lantus -hemoglobin A1c on 01/30/2021 was 9.0 (4) Psoriasis: Code(s): L40.9 - Psoriasis, unspecified Status: Acute Assessment and Plan: Patient has been on Humira prior to admission, currently on hold (5) Lumbar back pain: Code(s): M54.5 - Low back pain Status: Acute Assessment and Plan: Tylenol p.r.n. (6) Hypothyroidism: Qualifiers: Hypothyroidism type: unspecified Qualified Code(s): E03.9 - Hypothyroidism, unspecified Code(s): E03.9 - Hypothyroidism, unspecified Status: Acute Assessment and Plan: Continue levothyroxine (7) Pneumonia: Qualifiers: Pneumonia type: due to unspecified organism Laterality: bilateral Lung location: lower lobe of lung Qualified Code(s): J18.9 - Pneumonia, unspecified organism Code(s): J18.9 - Pneumonia, unspecified organism Status: Acute Assessment and Plan: 04/24/21 Patient is on 15 L of oxygen by nasal cannula Likely a combination of poor oral intake and some hyperglycemia Continue to monitor Will try for p.o. intake due to her tenuous respiratory status Holding metformin Holding glimepiride Insulin sliding scale as needed Accu-Cheks AC and HSContinue Synthroid Follow-up in the outpatient setting 04/25/21 Acute hypoxemic respiratory failure on 15 L Workup started for atypical pneumonia Repeat COVID PCR Consult pulmonology Patient on Humira unclear if she has pneumonia associated with immunocompromise state Continue current care A.m. labs 04/26/21 seen by pulm atypical PNA workup pending including repeat COVID testing pulm recs appreciated no overnight events cont current care O2 on high flow but stable BG elevated (received steroids) start Lantus 10U in addition to ISS med dose 04/27/21 lantus adjusted now on HFNC now at 60L 80% workup on going pulm following cont current care 04/28/21 tachycardia metoprolol ordered improve hypoxia pulm managing HFNC 60L 80% steroid 6mg IV BID
[2021-05-02] MEDS: INSULIN ASPART (*BKC) 100 UNITS/ML SUB-Q ×2 (12:03→17:29)
[2021-05-02 12:17] LABS: Glucose Point of Care 279 mg/dl (65-105)
[2021-05-02 13:15] LABS: HIV 1/2 Ab P24 Ag Result Negative (Negative)
[2021-05-02 17:51] LABS: Glucose Point of Care 269 mg/dl (65-105)
[2021-05-02 22:27] LABS: Glucose Point of Care 263 mg/dl (65-105)
[2021-05-03] VITALS (23 sets, daily range): BP systolic 124–138; BP diastolic 65–88; PULSE 70–96; RESP 15–28; TEMP 36.2–36.4; O2SAT 90–97
[2021-05-03] MEDS: ALBUTEROL SULFATE (*SP) INHALER 2 PUFF INHALATION ×7 (00:29→23:40)
[2021-05-03 05:13] LABS: Alanine Aminotransferase 81 U/L (4-35); Albumin Level 3.1 g/dL (3.5-5.1); Alkaline Phosphatase 83 U/L (38-126); Anion Gap 2 mmol/L (8-16); Aspartate Amino Transferase 48 U/L (14-36); Bilirubin,Total 0.7 mg/dL (0.2-1.3); Blood Urea Nitrogen 12 mg/dL (7-17); Calcium 8.6 mg/dL (8.4-10.2); Carbon Dioxide 30 mmol/L (22-30); Chloride 101 mmol/L (98-107); Estimated CRCL calculation 163 ml/min; Estimated Glomerular Filt Rate > 60; Glucose 186 mg/dL (65-110); Potassium 4.4 mmol/L (3.4-5.0); Sodium 133 mmol/L (137-145)
[2021-05-03] MEDS: LEVOTHYROXINE SODIUM 75 MCG TABLET PO (06:08)
[2021-05-03] MEDS: CENTRAL LINE FLUSH 10 ML IV PUSH ×3 (06:09→21:18)
[2021-05-03] MEDS: lisinopriL 5 MG TABLET PO (09:16)
[2021-05-03] MEDS: METOPROLOL TARTRATE 12.5 MG TABLET PO ×2 (09:16→21:15)
[2021-05-03] MEDS: ROSUVASTATIN 10 MG TABLET 20 MG PO (09:16)
[2021-05-03] MEDS: ENOXAPARIN 40 MG/0.4 ML SYRINGE SUB-Q ×2 (09:16→21:15)
[2021-05-03] MEDS: PANTOPRAZOLE SODIUM IV 40 MG VIAL IV PUSH ×2 (09:17→21:16)
[2021-05-03] MEDS: INSULIN GLARGINE (*BKC) 100 UNITS/ML 40 UNITS SUB-Q ×2 (09:17→21:14)
--- NOTE | 2021-05-03 09:24 | PM.PNPUL ---
Progress Note: A&P Assessment and Plan (1) COVID-19 in immunocompromised patient: Code(s): U07.1 - COVID-19; D84.9 - Immunodeficiency, unspecified Status: Acute Assessment and Plan: 04/29 Her test for COVID is negative, however she has this condition clinically. Her chest CT, high O2 demand, prolonged course of illness, and 'happy hypoxemic' presentation are consistent with COVID pneumonia. Patients on Humira/ adalimumab and other TNF-alpha inhibitors can have false positive tests for COVID, however false negatives can also happen. She appears to have COVID with a false negative test. Apr 28, she started IV dexamethasone 6 mg a day which seems to be helping. Saturation is better, and she can have AirVO weaned. SHe will need higher flows with exertion. 04/30 I agree that this patient most likely has COVID pneumonia. influenza negative. urine Legionella antigen negative. HIV negative. as above she has tested for COVID negative 3 times. I called our laboratory to send a COVID IgM antibody study but unfortunately we have none so I will order a IgG and total antibody and I will also order [facility] IgG and IgM total. if she were IgM positive this would indicate an acute infection. I will decrease patient's dexamethasone from 6 mg IV b.i.d. to 6 mg IV q.day. Overall patient is clinically stable and will follow at this time without Remdesivir, baracitinib or convalescent plasma. If the above IgG tests were negative we will consider convalescent plasma. 05/01 patient Vnnh-IGTS-YtQ-1 (ECLIA) test is our test for IgG and is positive. Total (IgG, IgM and IgA) test pending. 05/02 Patient is clinically unchanged. She has dyspnea on exertion and shortness of breath with minimal activity and otherwise no complaints. Currently on 55 L and 70% FiO2 with saturations 94%. Chest x-ray with no change in her bilateral interstitial infiltrates. CRP is 0.9. D-dimer is 2.38. For CT chest today to assess infiltrates and for post COVID ILD and or organizing pneumonia. No indication for tocilizumab or baricitinib currently. Since she has made little improvement with dexamethasone (started 04/28/21) and since she is immunocompromised will consider course of remdesivir. CT scan of the chest compared to 04/24/21 demonstrates worsening bilateral ground-glass infiltrates with areas of dense consolidation and now some bronchiectasis. Given patient's persistent hypoxemic respiratory failure, worsening infiltrates, immunocompromised status with history of psoriasis and positive autoantibodies and negative work up to date I spoke with ferryboat helper and we agree that transfer to higher level of care facility for additional testing (likely intubation and bronchoscopy, BAL, possible biopsy) and consultation (rheumatology) is recommended. I spoke with patient who is in agreement. Dr. Luna will initiate transfer. [facility] hospital accepted patient and awaiting bed. 05/03 Clinically unchanged. She remains with dyspnea on exertion and desats with any activity. Currently on 55 L and 70% FiO2 with saturations 93%. Her HIV study is negative. Her rheumatoid factor is negative. Additional serologies, cmv and respiratory pathogen multiplex viral panel are pending. Awaiting bed at [facility]. Discussed with Dr. Luna (2) Pneumonia: Qualifiers: Pneumonia type: due to unspecified organism Laterality: bilateral Lung location: lower lobe of lung Qualified Code(s): J18.9 - Pneumonia, unspecified organism Code(s): J18.9 - Pneumonia, unspecified organism Status: Acute Assessment and Plan: 65-year-old immunocompromised female chronically on alpha anti TNF agent for psoriasis (last dose of 40 mg on 04/25/21), vaccinated with 2 doses and additional booster for COVID, presented with febrile illness and shortness of breath that started approximately 1 month ago. The disease tempo has been fully clarified with the patient who stated that she became sick ab
--- NOTE | 2021-05-03 11:34 | PM.IMPN ---
Progress Note: A&P Assessment and Plan (1) Acute respiratory failure with hypoxia: Code(s): J96.01 - Acute respiratory failure with hypoxia Status: Acute Assessment and Plan: presented to the ER on 04/24 for SOB and not feeling well for 2 weeks. Given her immunocompromised state it is thought that her symptoms are related to related to COVID-19 despite his SARS-CoV-2 PCR I have been negative x3 (One test was negative prior to coming to the hospital and Two tests were negative in the hospital) - patient has had 2 doses of COVID vaccine and also a COVID booster vaccine -negative influenza, negative pneumococcal antigen -negative size SARS-CoV-2 PCR -04/24/2021: Blood cultures negative x2 -given radiological appearance, immunocompromise state patient is being currently treated as COVID-19 -continue dexamethasone which was initiated on 04/28 -FiO2 requirements are trending down -chest x-ray today showed worsening of the right-sided -patient is in negative fluid balance admission -appreciate pulmonology if evaluation recommendations - 05/01 patient Wsoy-XIPM-ZwN-1 (ECLIA) test is our test for IgG and is positive. -Total (IgG, IgM and IgA) test pending. 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: without exterminator termite use Qualified Code(s): E11.9 - Type 2 diabetes mellitus without complications Code(s): E11.9 - Type 2 diabetes mellitus without complications Status: Acute Assessment and Plan: Patient has history of diabetes, currently hyperglycemic likely related to dexamethasone being given for COVID-19 -continue sliding scale insulin Accu-Chek -increase Lantus -hemoglobin A1c on 01/30/2021 was 9.0 (4) Psoriasis: Code(s): L40.9 - Psoriasis, unspecified Status: Acute Assessment and Plan: Patient has been on Humira prior to admission, currently on hold (5) Lumbar back pain: Code(s): M54.5 - Low back pain Status: Acute Assessment and Plan: Tylenol p.r.n. (6) Hypothyroidism: Qualifiers: Hypothyroidism type: unspecified Qualified Code(s): E03.9 - Hypothyroidism, unspecified Code(s): E03.9 - Hypothyroidism, unspecified Status: Acute Assessment and Plan: Continue levothyroxine (7) Pneumonia: Qualifiers: Pneumonia type: due to unspecified organism Laterality: bilateral Lung location: lower lobe of lung Qualified Code(s): J18.9 - Pneumonia, unspecified organism Code(s): J18.9 - Pneumonia, unspecified organism Status: Acute Assessment and Plan: 04/24/21 Patient is on 15 L of oxygen by nasal cannula Likely a combination of poor oral intake and some hyperglycemia Continue to monitor Will try for p.o. intake due to her tenuous respiratory status Holding metformin Holding glimepiride Insulin sliding scale as needed Accu-Cheks AC and HSContinue Synthroid Follow-up in the outpatient setting 04/25/21 Acute hypoxemic respiratory failure on 15 L Workup started for atypical pneumonia Repeat COVID PCR Consult pulmonology Patient on Humira unclear if she has pneumonia associated with immunocompromise state Continue current care A.m. labs 04/26/21 seen by pulm atypical PNA workup pending including repeat COVID testing pulm recs appreciated no overnight events cont current care O2 on high flow but stable BG elevated (received steroids) start Lantus 10U in addition to ISS med dose 04/27/21 lantus adjusted now on HFNC now at 60L 80% workup on going pulm following cont current care 04/28/21 tachycardia metoprolol ordered improve hypoxia pulm managing HFNC 60L 80% steroid 6mg IV BID
[2021-05-03] MEDS: INSULIN ASPART (*BKC) 100 UNITS/ML SUB-Q ×2 (13:15→18:05)
[2021-05-03 14:31] LABS: Glucose Point of Care 248 mg/dl (65-105)
[2021-05-03 14:31] LABS: Glucose Point of Care 148 mg/dl (65-105)
[2021-05-03 19:23] LABS: Glucose Point of Care 252 mg/dl (65-105)
[2021-05-03] MEDS: DOCUSATE SODIUM 100 MG CAPSULE PO (21:46)
[2021-05-03 21:55] LABS: Glucose Point of Care 259 mg/dl (65-105)
[2021-05-04] VITALS: BP 143/76; PULSE 82; PULSE 93; RESP 18; TEMP 36.8; O2SAT 94
--- NOTE | 2021-05-04 00:09 | PC.NURSE ---
verbal consent for ambulance transpot witnessed by Adelaida Rebolledo RN.
--- NOTE | 2021-05-04 00:51 | PC.NURSE ---
05/03/21 [id number] Jagdeep ORTIZ at [facility] called with report. Will update per ambulance ETA.
[2021-05-04 02:00] VITALS: PULSE 72
--- NOTE | 2021-05-04 03:05 | PC.NURSE ---
05/04/21 0130 Jagdeep ORTIZ at [facility] updated to zita Shanks ETA of 0300.
--- NOTE | 2021-05-04 03:49 | PC.NURSE ---
05/04/21 0330 Jagdeep ORTIZ at [facility] updated to new ETA of 0430.
[2021-05-04 04:00] VITALS: BP 130/72; PULSE 74; PULSE 75; RESP 20; TEMP 36.8; O2SAT 94
[2021-05-04] MEDS: ALBUTEROL SULFATE (*SP) INHALER 2 PUFF INHALATION (05:00)
[2021-05-04 05:20] VITALS: O2SAT 96
[2021-05-04 05:45] VITALS: O2SAT 94
--- NOTE | 2021-05-04 06:17 | PC.NURSE ---
Pt loaded on ambulance stretcher and transported with 15L nonrebreather over 15L high-rosa nasal cannula. Pt O2 sat 94% at rest.
[2021-05-04 18:12] LABS: CMV DNA Quant PCR IU/mL Not Detected; Cytomegalovirus DNA Quant PCR Not Detected log IU/mL; Cytomegalovirus DNA Source Plasma
[2021-05-05 20:40] LABS: Histone Antibody <1.0 U (<1.0)
[2021-05-07 19:34] LABS: ANA Cascade Screen Positive (Negative)
[2021-05-08 22:17] LABS: ANCA Screen Negative (Negative)
[2021-05-09 07:43] LABS: Anti Cyclic Citrullinated Pept <16 Units (<20)
[2021-05-13 21:19] LABS: Chromatin (Nucleosomal) Ab 3.3; RNP Antibody 1.1; Sm Antibody >8.0; Sm/RNP Antibody >8.0
--- NOTE | 2021-05-17 11:44 | PM.DS ---
DS: Admitting Diagnosis Discharge Date 05/04/21 Admitting Diagnosis COVID pneumonia, acute respiratory failure DS: Discharge Diagnosis Discharge Diagnosis (1) Acute respiratory failure with hypoxia: Code(s): J96.01 - Acute respiratory failure with hypoxia Status: Acute Assessment and Plan: presented to the ER on 04/24 for SOB and not feeling well for 2 weeks. Given her immunocompromised state it is thought that her symptoms are related to related to COVID-19 despite his SARS-CoV-2 PCR I have been negative x3 (One test was negative prior to coming to the hospital and Two tests were negative in the hospital) - patient has had 2 doses of COVID vaccine and also a COVID booster vaccine -negative influenza, negative pneumococcal antigen -negative size SARS-CoV-2 PCR -04/24/2021: Blood cultures negative x2 -given radiological appearance, immunocompromise state patient is being currently treated as COVID-19 -continue dexamethasone which was initiated on 04/28 -FiO2 requirements are trending down -chest x-ray today showed worsening of the right-sided -patient is in negative fluid balance admission -appreciate pulmonology if evaluation recommendations - 05/01 patient [id number]-[id number]-1 (ECLIA) test is our test for IgG and is positive. -Total (IgG, IgM and IgA) test pending. CT chest 05/02/2021: shows worsening diffuse lung disease Discussed extensively with maintenance controller, Dr. Reese, after reviewing the CT scan of the chest, he feels that the patient be better off at a tertiary center where she could get a rheumatology consult, a BAL and a possible lung biopsy. Patient was transferred to [facility] (2) Pneumonia: Code(s): J18.9 - Pneumonia, unspecified organism Status: Acute Assessment and Plan: 04/24/21 Patient is on 15 L of oxygen by nasal cannula Likely a combination of poor oral intake and some hyperglycemia Continue to monitor Will try for p.o. intake due to her tenuous respiratory status Holding metformin Holding glimepiride Insulin sliding scale as needed Accu-Cheks AC and HSContinue Synthroid Follow-up in the outpatient setting 04/25/21 Acute hypoxemic respiratory failure on 15 L Workup started for atypical pneumonia Repeat COVID PCR Consult pulmonology Patient on Humira unclear if she has pneumonia associated with immunocompromise state Continue current care A.m. labs 04/26/21 seen by pulm atypical PNA workup pending including repeat COVID testing pulm recs appreciated no overnight events cont current care O2 on high flow but stable BG elevated (received steroids) start Lantus 10U in addition to ISS med dose 04/27/21 lantus adjusted now on HFNC now at 60L 80% workup on going pulm following cont current care 04/28/21 tachycardia metoprolol ordered improve hypoxia pulm managing HFNC 60L 80% steroid 6mg IV BID cont current care 04/29/21 dexamethasone 6mg IV BID lantus increased to 20U BID ISS to high dose cont supplemental O2 HFNC pulm following recs appreciated pt out of the window x antiviral therapy 04/30/2021 Continue Decadron Supplemental oxygen via Airvo oxygen requirement similar Pulmonary following Will stop her humira Continue Lovenox 40 mg subQ q.12 hours All testing for COVID multiple times of the negative the strongly suspected perc and active COVID infection Continue ceftriaxone and azithromycin Lantus 25 units b.i.d. increased due to hyperglycemia likely related to steroid. Steroid dosing is also lowered from 6 mg twice daily to 6 mg daily today Atarax p.r.n. for anxiety Discussed with Dr. Reese with pulmonary 05/01/2021 Continue dexamethasone -on Airvo FiO2 of 75% (was on 90% yesterday) -appreciate pulmonology evaluation recommendation -continue enoxaparin -continue ceftriaxone and azithromycin, will complete a course of 7 days -increase Lantus Additional Plan Discussed extensively with maintenance controller, Dr. Reese, after reviewing the CT
--- NOTE | 2021-05-17 11:57 | PM.TDS ---
Transfer Discharge Sum: Prov Provider Date of admission: 04/24/21 16:24 Primary care physician: Jordin Lovett MD Admitting clinician: Christopher Dale MD Consults: 04/25/21 Consult to Physician Routine Comment: Spoke to Dr. Reese in person at [facility] RN station Consulting Provider: Marlo Reese Reason for consultation: PNA Has provider been notified: Yes Anticipated date of transfer: 05/04/21 Receiving physician/facility: Patient worsening DS: Admitting Diagnosis Discharge Date 05/04/21 Admitting Diagnosis COVID pneumonia, acute hypoxemic respiratory failure DS: Discharge Diagnosis Discharge Diagnosis (1) Acute respiratory failure with hypoxia: Code(s): J96.01 - Acute respiratory failure with hypoxia Status: Acute Assessment and Plan: presented to the ER on 04/24 for SOB and not feeling well for 2 weeks. Given her immunocompromised state it is thought that her symptoms are related to related to COVID-19 despite his SARS-CoV-2 PCR I have been negative x3 (One test was negative prior to coming to the hospital and Two tests were negative in the hospital) - patient has had 2 doses of COVID vaccine and also a COVID booster vaccine -negative influenza, negative pneumococcal antigen -negative size SARS-CoV-2 PCR -04/24/2021: Blood cultures negative x2 -given radiological appearance, immunocompromise state patient is being currently treated as COVID-19 -continue dexamethasone which was initiated on 04/28 -FiO2 requirements are trending down -chest x-ray today showed worsening of the right-sided -patient is in negative fluid balance admission -appreciate pulmonology if evaluation recommendations - 05/01 patient [id number] (ECLIA) test is our test for IgG and is positive. -Total (IgG, IgM and IgA) test pending. CT chest 05/02/2021: shows worsening diffuse lung disease Discussed with pulmonology, multiple is concrete the patient will be better off is done she case center where she can get a rheumatology consult, a bronchoscopy and BAL. Patient was transferred to [facility] on 05/04/2021 (2) Pneumonia: Code(s): J18.9 - Pneumonia, unspecified organism Status: Acute Assessment and Plan: 04/24/21 Patient is on 15 L of oxygen by nasal cannula Likely a combination of poor oral intake and some hyperglycemia Continue to monitor Will try for p.o. intake due to her tenuous respiratory status Holding metformin Holding glimepiride Insulin sliding scale as needed Accu-Cheks AC and HSContinue Synthroid Follow-up in the outpatient setting 04/25/21 Acute hypoxemic respiratory failure on 15 L Workup started for atypical pneumonia Repeat COVID PCR Consult pulmonology Patient on Humira unclear if she has pneumonia associated with immunocompromise state Continue current care A.m. labs 04/26/21 seen by pulm atypical PNA workup pending including repeat COVID testing pulm recs appreciated no overnight events cont current care O2 on high flow but stable BG elevated (received steroids) start Lantus 10U in addition to ISS med dose 04/27/21 lantus adjusted now on HFNC now at 60L 80% workup on going pulm following cont current care 04/28/21 tachycardia metoprolol ordered improve hypoxia pulm managing HFNC 60L 80% steroid 6mg IV BID cont current care 04/29/21 dexamethasone 6mg IV BID lantus increased to 20U BID ISS to high dose cont supplemental O2 HFNC pulm following recs appreciated pt out of the window x antiviral therapy 04/30/2021 Continue Decadron Supplemental oxygen via Airvo oxygen requirement similar Pulmonary following Will stop her humira Continue Lovenox 40 mg subQ q.12 hours All testing for COVID multiple times of the negative the strongly suspected perc and active COVID infection Continue ceftriaxone and azithromycin Lantus 25 units b.i.d. increased due to hyperglycemia likely related to steroid. Steroid dosing is also lowered from 6 mg
== END 2021-05-04 06:07 | disposition short-term general hospital (02) | DRG 177 ==
LOC: ANHED 16:26 → ANHIMU 19:10 → ANHICU 04-30 17:18
PROVIDERS: Hospitalist; Internal Medicine; Internal Medicine Pulmonary Disease; Admitting Provider Internal Medicine; Emergency Provider Emergency Medicine; PCP Family Medicine; Visit Provider Internal Medicine
DX: U07.1 COVID-19 (principal); J12.82 Pneumonia due to coronavirus disease 2019; J96.01 Acute respiratory failure with hypoxia; E87.1 Hypo-osmolality and hyponatremia; E11.65 Type 2 diabetes mellitus with hyperglycemia; L40.9 Psoriasis, unspecified; I10 Essential (primary) hypertension; E03.9 Hypothyroidism, unspecified; D64.9 Anemia, unspecified; K74.60 Unspecified cirrhosis of liver; E78.2 Mixed hyperlipidemia; M54.50 Low back pain, unspecified; Z87.891 Personal history of nicotine dependence; R76.8 Other specified abnormal immunological findings in serum
CPT/HCPCS: 36415; 36569; 36600; 71045; 71250; 71275; 80048; 80053; 81001; 82375; 82565; 82728; 82805; 82948; 83050; 83516; 83605; 83615; 83735; 83880; 84100; 84443; 84460; 84484; 85025; 85055; 85380; 85610; 85652; 85730; 86021; 86038; 86140; 86200; 86331; 86413; 86430; 86606; 86609; 86703; 86769; 87040; 87077; 87086; 87088; 87385; 87449; 87486; 87497; 87581; 87633; 87804; 93005; 94640; 96361; 96374; 96375; 99233; 99253; 99291; A9270; C1751; C9113; C9803; G0432; J0131; J0456; J0696; J1100; J1650; J1815; J7030; J8540; Q9967; U0003; U0005